=== PATIENT | male | born 1980 | race African-American/Black ===

== ENCOUNTER → 2020-01-03 09:09 | Outpatient (CLI) | payer OTHER, SELFPAY ==
--- NOTE | ~2020-01-03 | XR_ITS ---
XR shoulder LT min 2V 01/03/2020 09:56 INDICATION: Left shoulder pain PROCEDURE: 4 views left shoulder COMPARISON: No prior studies for comparison. FINDINGS: Fracture, dislocation or subluxation is not identified. The soft tissues appear within norm al limits. No foreign bodies are identified. IMPRESSION: 1: NO ACUTE BONE OR JOINT ABNORMALITY IDENTIFIED. Reviewed, dictated and finalized at location A.
--- NOTE | ~2020-01-03 | XR_ITS ---
XR chest 2V 01/03/2020 09:56 Indication: Chest and shoulder pain. Tobacco use. Procedure: 2 view chest Comparison: No prior studies for comparison. Findings: There is left basilar atelectasis. Heart size normal. No focal pneumonia, pulmonary edema, pleural effusion or pneumothorax. Impression: 1: Subsegmental left basilar atelectasis. Reviewed, dictated and finalized at location A. Impression: 1: Subsegmental left basilar atelectasis.
--- NOTE | ~2020-01-03 | XR_ITS ---
XR cervical spine 4-5V INDICATION: Neck pain TECHNIQUE: For views of the cervical spine. FINDINGS: No prior studies for comparison. The cervical spine is visualized to the cervicothoracic junction. There is no prevertebral soft tiss ue swelling, listhesis, or loss of vertebral body height. Intervertebral disc spaces are normal. Th e osseous central canal is patent. No displaced cervical spine fractures are identified. IMPRESSION: 1. No significant osseous abnormality of the cervical spine. Reviewed, dictated and finalized at location A.
== END ==
PROVIDERS: PCP Emergency Medicine; Visit Provider Emergency Medicine
DX: M54.2 Cervicalgia (principal); Z72.0 Tobacco use; M25.512 Pain in left shoulder; J98.11 Atelectasis
CPT/HCPCS: 71046; 72050; 73030

== ENCOUNTER 2020-02-25 14:22 | Emergency (ER) | payer OTHER, SELFPAY ==
[2020-02-25] VITALS (16 sets, daily range): BP systolic 113–167; BP diastolic 75–111; PULSE 51–78; RESP 18–20; TEMP 37.1; O2SAT 92–100
--- NOTE | ~2020-02-25 | XR_ITS ---
EXAMINATION: XR chest 2V DATE: 02/25/2020 15:44 INDICATION: Asthma presenting with hypertension and 2 days of stabbing upper chest pain TECHNIQUE: PA and lateral views of the chest were obtained. COMPARISON: Chest radiograph dated 01/03/2020 FINDINGS: The lungs are clear with no focal airspace opacities, pulmonary edema, pleural effusion or pneumothor ax. The cardiomediastinal silhouette is normal. Unchanged minimal anterior wedging of a midthoracic v ertebral body, likely T7. IMPRESSION: 1. No acute cardiopulmonary disease. Reviewed, dictated and finalized at location H. [employer] MA[employer]GER
--- NOTE | 2020-02-25 14:33 | ECG_ITS ---
Measurements Intervals [place] Rate: 65 P: 61 MS: 145 QRS: 11 QRSD: 103 T: -18 QT: 392 QTc: 410 Interpretive Statements SINUS RHYTHM BORDERLINE ST-T WAVE ABNORMALITY- INF/LAT LEADS BORDERLINE ECG Electronically Signed On 02-25-2020 14:59:52 [employer] by Toby Archer D.O.
[2020-02-25 14:54] LABS: Basophils Percent Auto 0.6 % (0.2-1.2); Eosinophils Absolute Auto 0.2 K/mm3 (0-0.3); Eosinophils Percent Auto 2.1 % (0-4.4); Hematocrit 47.4 % (42.0-52.0); Hemoglobin 16.1 g/dL (14.0-18.0); Immature Granulocyte Absolute 0.04 K/mm3 (0.00-0.031); Immature Granulocyte Percent A 0.6 % (0-0.5); Lymphocytes Percent Auto 30.7 % (18.3-44.2); Mean Corpuscular Hemoglobin 32.3 pg (26-34); Mean Platelet Volume 9.5 fl (7.4-10.4); Monocytes Absolute Auto 0.6 K/mm3 (0.1-0.6); Monocytes Percent Auto 8.1 % (2.6-8.5); Neutrophils Absolute Auto 4.2 K/mm3 (1.3-6.7); Neutrophils Percent Auto 57.9 % (45.5-73.1); Platelet Count Result 222 k/mm3 (150-375); Red Blood Count 4.99 M/mm3 (4.6-6.20); Red Cell Distribution Width 12.8 % (11.5-14.5); White Blood Count 7.2 K/mm3 (4.5-10.0)
[2020-02-25 15:01] LABS: INR 0.9; Partial Thromboplastin Time 32.2 SECONDS (22.3-36.8); Prothrombin Time 12.6 Seconds (11.1-14.7)
[2020-02-25 15:05] LABS: Anion Gap 6 mmol/L (8-16); Blood Urea Nitrogen 13 mg/dL (9-20); Calcium 9.4 mg/dL (8.4-10.2); Carbon Dioxide 30 mmol/L (22-30); Chloride 106 mmol/L (98-107); Estimated CRCL calculation 138 ml/min; Estimated Glomerular Filt Rate > 60; Glucose 115 mg/dL (75-110); Potassium 3.7 mmol/L (3.4-5.0); Sodium 142 mmol/L (137-145)
[2020-02-25 15:16] LABS: Troponin I < 0.012 ng/mL (0.000-0.034)
--- NOTE | 2020-02-25 15:18 | ED.GENADULT ---
HPI - General Adult General Chief complaint: Chest Pain <Joy Rodriguez MD - Last Filed: 02/26/20 07:26> Stated complaint: abnormal ekg <Joy Rodriguez MD - Last Filed: 02/26/20 07:26> Time Seen by Provider: 02/25/20 15:15 <Joy Rodriguez MD - Last Filed: 02/26/20 07:26> Source: patient <Joy Rodriguez MD - Last Filed: 02/26/20 07:26> History of Present Illness HPI narrative: Patient is a 39 y/o male complaining of left sided chest pain for last 2 days. He describes his pain as sharp and rates it as 8/10. There is no pain radiation. He states that movement aggravates his pain. He has some SOB. He denies any cough or fever. He states that he was seen in Dr. Perry's office earlier and was sent here for evaluation. <Joy Rodriguez MD - Last Filed: 02/26/20 07:26> Related Data Home medications: Home Medications Medication Instructions Recorded Confirmed No Home Medications 02/25/20 02/25/20 <Joy Rodriguez MD - Last Filed: 02/26/20 07:26> Allergies/adverse reactions: Allergies Allergy/AdvReac Type Severity Reaction Status Date / Time Penicillins AdvReac Unknown Rash Verified 02/25/20 15:25 <Joy Rodriguez MD - Last Filed: 02/26/20 07:26> Review of Systems Constitutional: Constitutional: Denies chills, Denies fever(s), Denies headache(s) and Denies weakness <Joy Rodriguez MD - Last Filed: 02/26/20 07:26> Eyes: Eyes: Denies blurry vision <Joy Rodriguez MD - Last Filed: 02/26/20 07:26> ENT: Denies headache(s) and Denies neck pain <Joy Rodriguez MD - Last Filed: 02/26/20 07:26> Cardiovascular: Cardiovascular: Reports chest pain and Reports dyspnea <Joy Rodriguez MD - Last Filed: 02/26/20 07:26> Respiratory: Respiratory: Denies cough and Reports dyspnea <Joy Rodriguez MD - Last Filed: 02/26/20 07:26> Gastrointestinal: Gastrointestinal: Denies abdominal pain, Denies diarrhea, Denies nausea and Denies vomiting <Joy Rodriguez MD - Last Filed: 02/26/20 07:26> Genitourinary: Genitourinary: Denies hematuria and Denies dysuria <Joy Rodriguez MD - Last Filed: 02/26/20 07:26> Musculoskeletal: Musculoskeletal: Denies back pain and Denies neck pain <Joy Rodriguez MD - Last Filed: 02/26/20 07:26> Neurologic: Denies headache(s) and Denies weakness <Joy Rodriguez MD - Last Filed: 02/26/20 07:26> Exam Const: General: no acute distress and well developed <Joy Rodriguez MD - Last Filed: 02/26/20 07:26> Orientation/consciousness: oriented to person, oriented to place, oriented to time and patient oriented x3 <Joy Rodriguez MD - Last Filed: 02/26/20 07:26> HENMT: Head: normocephalic <Joy Rodriguez MD - Last Filed: 02/26/20 07:26> Ears: external ears normal <Joy Rodriguez MD - Last Filed: 02/26/20 07:26> General nose exam: Normal external nose present <Joy Rodriguez MD - Last Filed: 02/26/20 07:26> Eyes: General: appearance normal, both eyes and all related structures <Joy Rodriguez MD - Last Filed: 02/26/20 07:26> Conjunctivae: conjunctivae normal <Joy Rodriguez MD - Last Filed: 02/26/20 07:26> Neck: Neck: normal visual inspection and full ROM <Joy Rodriguez MD - Last Filed: 02/26/20 07:26> Chest: Chest palpation & inspection: normal inspection of the chest and no tenderness <Joy Rodriguez MD - Last Filed: 02/26/20 07:26> Resp: Effort & Inspection: normal respiratory effort <Joy Rodriguez MD - Last Filed: 02/26/20 07:26> Auscultation: clear to auscultation bilaterally <Joy Rodriguez MD - Last Filed: 02/26/20 07:26> Cardio: Rate: regular rate <Joy Rodriguez MD - Last Filed: 02/26/20 07:26> Rhythm: regular rhythm <Joy Rodriguez MD - Last Filed: 02/26/20 07:26> GI: GI Palp: No abdominal tenderness and Yes Soft to palpation <Joy Rodriguez MD - Last Filed: 02/26/20 07:26> Skin: General skin exam: normal color and turgor normal <Joy Rodriguez MD - Last Filed: 02/26/20 07:26> Neuro: General: oriented to person, oriented to place, or
[2020-02-25] MEDS: ASPIRIN 81 MG CHEWABLE TABLET 324 MG PO (15:34)
--- NOTE | 2020-02-25 16:23 | PC.NURSE ---
Dinner tray given po.
--- NOTE | 2020-02-25 17:52 | PC.NURSE ---
3hr troponin being drawn. Pt denies chest pain at present. Made aware of pending results.
[2020-02-25 17:57] LABS: D Dimer 0.27 ug/mL (<0.48)
[2020-02-25 18:14] LABS: Troponin I < 0.012 ng/mL (0.000-0.034)
--- NOTE | 2020-02-25 19:08 | PC.NURSE ---
Report to BELINDA Corona, to continue care.
== END 2020-02-25 20:09 | disposition home or self-care (01) ==
PROVIDERS: Emergency Medicine; Emergency Provider Emergency Medicine; PCP Emergency Medicine
DX: R07.89 Other chest pain (principal); R94.31 Abnormal electrocardiogram [ECG] [EKG]
CPT/HCPCS: 36415; 71046; 80048; 84484; 85025; 85380; 85610; 85730; 93005; 99284; A9270

== ENCOUNTER → 2020-06-11 14:15 | Outpatient (CLI) | payer OTHER, SELFPAY ==
--- NOTE | ~2020-06-11 | XR_ITS ---
EXAMINATION: XR foot RT min 3V DATE: 06/11/2020 14:36 INDICATION: Injury to the right great toe TECHNIQUE: Dorsoplantar, two oblique and lateral views of the right foot were obtained. COMPARISON: None. FINDINGS: Hallux valgus with bunion. No fracture. Mild osteoarthritis at the first metatarsophalangeal joint an d a few tarsal metatarsal and interphalangeal joints. Heterotopic ossification near the tip of the la teral malleolus likely sequela of chronic lateral ankle sprain. Small plantar calcaneal spur. IMPRESSION: 1. Heterotopic ossification related to the lateral malleolus likely sequela of chronic ankle sprain. No acute osseous abnormality. 2. Hallux valgus with bunion. 3. 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 Reviewed, dictated and finalized at location B. N [employer]ER IMPRESSION: 1. Heterotopic ossification related to the lateral malleolus likely sequela of chronic ankle sprain. No acute osseous abnormality. 2. Hallux valgus with bunion. 3. Mild degenerative skeletal changes including mild articular osteoarthritis i n the mid and forefoot and small plantar calcaneal spur.
== END ==
PROVIDERS: PCP Emergency Medicine; Visit Provider Emergency Medicine
DX: S99.912A Unspecified injury of left ankle, initial encounter (principal); M20.11 Hallux valgus (acquired), right foot; M21.611 Bunion of right foot
CPT/HCPCS: 73630

== ENCOUNTER 2020-09-26 13:42 | Emergency (ER) | payer OTHER, SELFPAY ==
[2020-09-26 14:13] VITALS: BP 140/90; PULSE 57; RESP 20; TEMP 37.6; O2SAT 100
--- NOTE | 2020-09-26 16:53 | PC.NURSE ---
Name called multiple times in triage, no response.
== END 2020-09-26 16:53 | disposition left against medical advice (07) ==
PROVIDERS: PCP Emergency Medicine
DX: Z53.21 Procedure and treatment not carried out due to patient leaving prior to being seen by health care provider (principal)
CPT/HCPCS: 99199

== ENCOUNTER 2020-12-18 10:23 | Outpatient (CLI) | payer OTHER, SELFPAY ==
--- NOTE | 2020-12-20 23:20 | WPDPFTINT ---
PFT Procedure Performed PFT Procedure Performed Plethysmography (Lung Vol) Diffusing Cap (DLCO) PFT Interpretation DATE OF SERVICE: 12/18/2020 REQUESTING: Ry Perry MD REASON FOR TESTING: Asthma PULMONARY FUNCTION TESTS Results are reliable and reproducible. SPIROMETRY: The FEV1 is 77% predicted, 3.48 L. FVC is 85% predicted. The FEV1/FVC ratio is 73%, normal. No bronchodilator was given. LUNG VOLUMES: Total lung capacity is 86%, normal. Residual volume is 74%, normal. The RV/TLC is 24%, no air trapping. Airway resistance is increased 1389% predicted. DIFFUSING CAPACITY: DLCO is 70% predicted, mildly decreased. This normalizes when corrected for alveolar volume, 100% predicted. FLOW VOLUME LOOP: There is 1 normal flow volume loop. This was not reproducible. IMPRESSION: This pulmonary function test shows normal spirometry, lung volumes with mild decrease in diffusing capacity. This is a nonspecific finding. The patient reports a history of smoking which could explain the mild decrease in DLCO. Increased airway resistance. No bronchodilator was given.
== END 2020-12-18 10:24 | disposition home or self-care (01) ==
LOC: ANHPFT 10:26
PROVIDERS: PCP Emergency Medicine; Visit Provider Emergency Medicine
DX: J45.909 Unspecified asthma, uncomplicated (principal)
CPT/HCPCS: 94375; 94726; 94729

== ENCOUNTER 2021-10-26 22:35 | Emergency (ER) | payer OTHER, SELFPAY ==
--- NOTE | ~2021-10-26 | XR_ITS ---
EXAMINATION: XR chest 2V DATE: 10/26/2021 23:11 INDICATION: Chest pain with onset 4 days prior TECHNIQUE: PA and lateral views of the chest were obtained. COMPARISON: Chest radiograph dated 02/25/2020 FINDINGS: The lungs remain clear with no focal airspace opacities, pulmonary edema, pleural effusion or pneumot horax. The cardiomediastinal silhouette is normal. Visualized bones and soft tissues are unremarkable . IMPRESSION: 1. No acute cardiopulmonary disease. Reviewed, dictated and finalized at location A.
--- NOTE | 2021-10-26 22:38 | ECG_ITS ---
Measurements Intervals [place] Rate: 56 P: 52 DC: 154 QRS: 12 QRSD: 102 T: -16 QT: 400 QTc: 389 Interpretive Statements SINUS BRADYCARDIA INCOMPLETE RIGHT BUNDLE BRANCH BLOCK ST-T WAVE ABNORMALITY IN INFERIOR LEADS- CONSIDER ISCHEMIA ABNORMAL ECG Electronically Signed On 10-27-2021 7:51:28 CDT by Toby Archer D.O.
[2021-10-26 22:50] VITALS: BP 144/84; PULSE 65; RESP 15; TEMP 36.7; O2SAT 100
[2021-10-26 22:59] LABS: Basophils Absolute Auto 0.1 K/mm3 (0.0-0.1); Basophils Percent Auto 0.7 % (0.2-1.2); Eosinophils Absolute Auto 0.2 K/mm3 (0-0.3); Eosinophils Percent Auto 2.8 % (0-4.4); Hematocrit 44.5 % (42.0-52.0); Hemoglobin 14.8 g/dL (14.0-18.0); Immature Granulocyte Absolute 0.02 K/mm3 (0.00-0.031); Immature Granulocyte Percent A 0.2 % (0-0.5); Lymphocytes Percent Auto 38.4 % (18.3-44.2); Mean Corpuscular HGB Conc 33.3 g/dl (32-36); Mean Corpuscular Hemoglobin 31.8 pg (26-34); Mean Corpuscular Volume 95.5 fl (80-100); Mean Platelet Volume 9.9 fl (7.4-10.4); Monocytes Absolute Auto 0.7 K/mm3 (0.1-0.6); Monocytes Percent Auto 8.9 % (2.6-8.5); Neutrophils Absolute Auto 4.1 K/mm3 (1.3-6.7); Platelet Count Result 213 k/mm3 (150-375); Red Blood Count 4.66 M/mm3 (4.6-6.20); Red Cell Distribution Width 13.1 % (11.5-14.5); White Blood Count 8.3 K/mm3 (4.5-10.0)
[2021-10-26 23:11] LABS: Prothrombin Time 12.9 Seconds (11.1-14.7)
[2021-10-26 23:12] LABS: Partial Thromboplastin Time 32.9 SECONDS (22.3-36.8); Potassium 3.7 mmol/L (3.4-5.0)
[2021-10-26 23:15] LABS: Alanine Aminotransferase 24 U/L (6-50); Albumin Level 4.1 g/dL (3.5-5.1); Alkaline Phosphatase 82 U/L (38-126); Anion Gap 5 mmol/L (8-16); Aspartate Amino Transferase 25 U/L (17-59); Bilirubin,Total 0.3 mg/dL (0.2-1.3); Blood Urea Nitrogen 13 mg/dL (9-20); Calcium 8.6 mg/dL (8.4-10.2); Carbon Dioxide 27 mmol/L (22-30); Chloride 107 mmol/L (98-107); Estimated CRCL calculation 139 ml/min; Estimated Glomerular Filt Rate > 60; Glucose 105 mg/dL (65-110); Lipase 58 U/L (23-300); Sodium 139 mmol/L (137-145)
[2021-10-26 23:24] LABS: Troponin I < 0.012 ng/mL (0.000-0.034)
--- NOTE | 2021-10-26 23:28 | ED.GENADULT ---
HPI - General Adult General Chief complaint: Chest Pain Stated complaint: chest pains Time Seen by Provider: 10/26/21 23:21 History of Present Illness HPI narrative: Patient is a 41-year-old gentleman who presents the emergency department with chief complaint of chest pain. Patient states for the last 2 days he has been having pain on the right side of his chest patient states is worse with inspiration and worse with movement. Patient reports that he had been seen recently for similar symptoms and and actually had a cardiac cath and did not require any stent placement and was not placed on any medication was told he had clean coronaries. This was done at [place]. The patient states that he has had no trauma reports no shortness of breath Related Data Allergies Allergy/AdvReac Type Severity Reaction Status Date / Time Penicillins AdvReac Unknown Rash Verified 10/26/21 22:38 Review of Systems Review of Systems: A 10 system review of systems was completed on the patient and is negative except for what is stated in the HPI. Nursing and ancillary documentation was reviewed. [facility] Social History Social History Gender identity (if verbalized by the patient): Male Exam Narrative: GENERAL: Well-appearing, well-nourished, and in no acute distress. HEAD: Normocephalic, atraumatic. EYES: PERRLA and EOMI. ENT: Nares clear, no rhinorrhea or epistaxis. Mucous membranes moist. NECK: Supple. CHEST: Clear to auscultation. No respiratory distress. Chest wall is tender to palpation on the right sternal border HEART: Regular rate and rhythm. No murmur heard. Normal peripheral pulses. ABDOMEN: Soft, nontender, nondistended, normal active bowel sounds. EXTREMITIES: Normal range of motion. No edema. SKIN: Warm, dry, no rash. NEURO: No focal deficits. Alert and oriented x3. PSYCH: Normal mood and affect. Course Course Emergency Course: EKG is sinus bradycardia rate of [address] elevation or ST depression when compared to previous EKGs there is no significant change Vital Signs Vital signs: Vital Signs Temperature 36.7 C 10/26/21 22:50 Pulse Rate 65 10/26/21 22:50 Respiratory Rate 15 10/26/21 22:50 Blood Pressure 144/84 H 10/26/21 22:50 Pulse Oximetry 100 07/18/22 22:50 Oxygen Delivery Room Air 10/26/21 22:50 Temperature 36.7 C 10/26/21 22:50 Pulse Rate 65 10/26/21 22:50 Respiratory Rate 15 10/26/21 22:50 Blood Pressure 144/84 H 10/26/21 22:50 Pulse Oximetry 100 10/26/21 22:50 Oxygen Delivery Room Air 10/26/21 22:50 Medical Decision Making Vital Signs Vital Signs: Vital Signs Temperature 36.7 C 10/26/21 22:50 Pulse Rate 65 10/26/21 22:50 Respiratory Rate 15 10/26/21 22:50 Blood Pressure 144/84 H 10/26/21 22:50 Pulse Oximetry 100 10/26/21 22:50 Oxygen Delivery Room Air 10/26/21 22:50 Temperature 36.7 C 10/26/21 22:50 Pulse Rate 65 10/26/21 22:50 Respiratory Rate 15 10/26/21 22:50 Blood Pressure 144/84 H 10/26/21 22:50 Pulse Oximetry 10/26/21 22:50 Oxygen Delivery Room Air 10/26/21 22:50 Lab Data Result diagrams: 10/26/21 22:52 10/26/21 22:52 Labs: Lab Results 10/26/21 10/26/21 10/26/21 Range/Units 22:52 22:52 22:52 WBC 8.3 (4.5-10.0) K/mm3 RBC 4.66 (4.6-6.20) M/mm3 Hgb 14.8 (14.0-18.0) g/dL Hct 44.5 (42.0-52.0) % MCV 95.5 (80-100) fl MCH 31.8 (26-34) pg MCHC 33.3 (32-36) g/dl RDW 13.1 (11.5-14.5) % Plt Count 213 (150-375) k/mm3 MPV 9.9 (7.4-10.4) fl Immature Gran % (Auto) 0.2 (0-0.5) % Neut % (Auto) 49.0 (45.5-73.1) % Lymph % (Auto) 38.4 (18.3-44.2) % [place] % (Auto) 8.9 H (2.6-8.5) % Eos % (Auto) 2.8 (0-4.4) % Baso % (Auto) 0.7 (0.2-1.2) % Lymph # (Auto) 3.20 (0.9-3.2) K/mm3 [place] # (Auto) 0.7 H (0.1-0.6) K/mm3 Eos # (Auto) 0.2 (0-
[2021-10-26] MEDS: ASPIRIN 81 MG CHEWABLE TABLET 324 MG PO (23:33)
[2021-10-26] MEDS: KETOROLAC 30 MG/ML VIAL (*BKC) 15 MG IM (23:54)
--- NOTE | 2021-10-26 23:55 | PC.NURSE ---
verbal read back order just give same amount of Toradol IM
[2021-10-27 01:09] VITALS: BP 142/86; PULSE 82; RESP 18; O2SAT 98
== END 2021-10-27 01:12 | disposition home or self-care (01) ==
PROVIDERS: Emergency Provider Emergency Medicine; PCP Emergency Medicine
DX: R07.89 Other chest pain (principal)
CPT/HCPCS: 36415; 71046; 80053; 83690; 84484; 85025; 85610; 85730; 93005; 96372; 99284; A9270; J1885

== ENCOUNTER 2022-03-31 13:03 | Outpatient (CLI) | payer OTHER, SELFPAY ==
--- NOTE | ~2022-03-31 | US_ITS ---
EXAMINATION:US venous doppler LE LT INDICATION:Acute DVT of the left peroneal vein. TECHNIQUE: Multiple grayscale, color flow and Doppler images of the left lower extremity deep venous systems were obtained and reviewed. COMPARISON:No prior studies for comparison. FINDINGS: The common femoral, superficial femoral and popliteal veins demonstrate normal respiratory variation, augmentation and compressibility. Color flow is also seen within the posterior tibial, pe roneal, greater saphenous and profunda veins. IMPRESSION: 1: No lower extremity deep venous thrombosis. Reviewed, dictated and finalized at location A. 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
== END 2022-03-31 13:04 | disposition home or self-care (01) ==
PROVIDERS: PCP Emergency Medicine; Visit Provider Internal Medicine Hematology & Oncology
DX: I82.452 Acute embolism and thrombosis of left peroneal vein (principal)
CPT/HCPCS: 93971

== ENCOUNTER 2022-05-17 10:29 | Outpatient (CLI) | payer OTHER, SELFPAY ==
[2022-05-19 21:33] LABS: Antithrombin III Activity 101 % normal (80-135)
[2022-05-20 03:40] LABS: Homocysteine 20.3 umol/L (<11.4)
[2022-05-22 12:46] LABS: Lupus dRVVT Screen 40 sec (<=45); PTT-LA Screen 39 sec (<=40)
[2022-05-24 16:16] LABS: Factor V (Leiden) Mutation NEGATIVE
== END 2022-05-17 10:30 | disposition home or self-care (01) ==
PROVIDERS: PCP Emergency Medicine; Visit Provider Internal Medicine Hematology & Oncology
DX: I82.452 Acute embolism and thrombosis of left peroneal vein (principal)
CPT/HCPCS: 36415; 81240; 81241; 83090; 85300; 85303; 85306; 85613; 85730; 86146

== ENCOUNTER 2023-01-17 16:11 | Emergency (ER) | payer OTHER, SELFPAY ==
[2023-01-17 16:13] VITALS: BP 150/78; PULSE 71; RESP 17; TEMP 36.4; O2SAT 100
[2023-01-17 16:54] LABS: Appearance Urine Clear (Clear); Bilirubin Urine Negative (Negative); Blood Urine Negative (Negative); Color Urine Yellow (Yellow); Glucose Urine UA Negative (Negative); Ketones Urine Negative (Negative); Leukocyte Esterase Ur Negative LEU/UL (Negative); Nitrate Urine Negative (Negative); Protein Urine Negative (Negative); Specific Grav Ur 1.025 (1.001-1.035); Urobilinogen Urine 0.2 mg/dL (<2.0)
[2023-01-17 16:55] LABS: Add Urine Microscopic? NO
--- NOTE | 2023-01-17 17:16 | ED.MALEGU ---
HPI - Male Genitourinary General Chief complaint: Urogenital-Male Stated complaint: hematuria Time Seen by Provider: 01/17/23 16:33 History of Present Illness HPI Narrative: Patient is a 42-year-old male who presents ER with concerns for hematuria. Reports he urinated last night at the end of his stream there is a drop of blood. Similar thing happened this morning. Patient just started going back to work after being on disability for DVT. He is on Eliquis. No recent trauma. No urinary frequency urgency or dysuria. Denies flank pain. Related Data Home Medications Medication Instructions Recorded Confirmed amlodipine 5 mg tablet mg 01/17/23 apixaban 5 mg tablet (Eliquis) mg 01/17/23 clindamycin HCl 300 mg capsule mg 01/17/23 diclofenac sodium 75 mg mg PO 01/17/23 tablet,delayed release hydrochlorothiazide 12.5 mg tablet mg 01/17/23 lisinopril 10 mg tablet mg 01/17/23 01/17/23 Allergies Allergy/AdvReac Type Severity Reaction Status Date / Time Penicillins AdvReac Unknown Rash Verified 10/26/21 22:38 Review of Systems Constitutional: Constitutional: Denies chills, Denies fatigue and Denies fever(s) Genitourinary: Genitourinary: Reports hematuria, Denies oliguria, Denies dysuria, Denies penile discharge, Denies testicular pain and Denies urinary frequency PMFSH Past Medical History Medical History (Updated 01/17/23 @ 17:22 by Rodrigue Mahmood MD) DVT (deep venous thrombosis) Hypertension Surgical History Surgical History (Updated 01/17/23 @ 17:21 by Rodrigue Mahmood MD) No pertinent past surgical history Social History Social History Gender identity (if verbalized by the patient): Male Exam Narrative: GENERAL: Well-appearing, well-nourished, and in no acute distress. HEAD: Normocephalic, atraumatic. ENT: Mucous membranes moist. CHEST: Clear to auscultation. No respiratory distress. HEART: Regular rate and rhythm. Normal peripheral pulses. ABDOMEN: Soft, nontender, nondistended. No CVA tenderness EXTREMITIES: Normal range of motion. No edema. NEURO: Alert and oriented x3. PSYCH: Normal mood and affect. Course Course Emergency Course: Patient resting comfortably. Informed of results. Patient felt to be appropriate for discharge home. Encouraged hydration but also frequent bathroom breaks while at work. Vital Signs Vital signs: Vital Signs Temperature 97.6 F 01/17/23 16:13 Pulse Rate 71 01/17/23 16:13 Respiratory Rate 17 01/17/23 16:13 Blood Pressure 150/78 H 01/17/23 16:13 Pulse Oximetry 100 01/17/23 16:13 Oxygen Delivery Room Air 01/17/23 16:13 Temperature 97.6 F 01/17/23 16:13 Pulse Rate 71 01/17/23 16:13 Respiratory Rate 17 01/17/23 16:13 Blood Pressure 150/78 H 01/17/23 16:13 Pulse Oximetry 100 01/17/23 16:13 Oxygen Delivery Room Air 01/17/23 16:13 MDM - Male Genitourinary Lab Data Labs: Lab Results 01/17/23 Range/Units 16:24 Urine Color Yellow (Yellow) Urine Appearance Clear (Clear) Urine pH 7.0 (5.0-9.0) Ur Specific [place] 1.025 (1.001-1.035) Urine Protein Negative (Negative) mg/dL Urine Glucose (UA) Negative (Negative) mg/dL Urine Ketones Negative (Negative) mg/dL Ur Blood (Man) Negative (Negative) Urine Nitrate Negative (Negative) Urine Bilirubin Negative (Negative) Urine Urobilinogen 0.2 (<2.0) mg/dL Leukocyte Esterase Rfl Negative (Negative) [place]/UL Urine Characteristics Clear Discharge Plan Discharge Clinical Impression: Hematuria Patient Disposition: Home, Self-Care Condition: Stable Instructions: Hematuria (ED) Additional Instructions: There is no evidence of blood in your urine today nor was there evidence of infection. Return to the ER if you are passing large clots, your unable to urinate, you have addit
[2023-01-17 17:32] VITALS: BP 161/102; PULSE 62; RESP 18; O2SAT 98
== END 2023-01-17 17:33 | disposition home or self-care (01) ==
PROVIDERS: Student in an Organized Health Care Education/Training Program; Emergency Provider Emergency Medicine; PCP Emergency Medicine
DX: R31.9 Hematuria, unspecified (principal); I10 Essential (primary) hypertension; Z86.718 Personal history of other venous thrombosis and embolism; Z79.01 Long term (current) use of anticoagulants
CPT/HCPCS: 81003; 99283

== ENCOUNTER → 2023-06-08 09:44 | Outpatient (CLI) | payer OTHER, SELFPAY ==
--- NOTE | ~2023-06-08 | XR_ITS ---
Right Shoulder Technique: AP and scapular Y views were obtained. Clinical History: Pain Findings: No fracture or dislocation is seen. Osseous alignment is anatomic. The glenohumeral and acr omioclavicular joint spaces are preserved. Soft tissues are unremarkable. Impression: Unremarkable right shoulder radiographs. Reviewed, dictated and finalized at [facility]. STAFF NURSE Impression: Unremarkable right shoulder radiographs.
== END ==
PROVIDERS: PCP Emergency Medicine; Visit Provider Emergency Medicine
DX: M25.511 Pain in right shoulder (principal)
CPT/HCPCS: 73030

== ENCOUNTER 2023-08-22 12:10 | Emergency (ER) | payer OTHER, SELFPAY ==
[2023-08-22 12:16] VITALS: BP 143/80; PULSE 59; RESP 18; TEMP 36.5; O2SAT 99
[2023-08-22 12:45] VITALS: BP 147/69; PULSE 48; RESP 18; O2SAT 99
[2023-08-22 13:15] VITALS: BP 137/78; PULSE 48; RESP 20; O2SAT 100
[2023-08-22 13:24] LABS: Basophils Percent Auto 0.7 % (0.2-1.2); Eosinophils Absolute Auto 0.2 K/mm3 (0-0.3); Eosinophils Percent Auto 3.2 % (0-4.4); Hematocrit 46.9 % (42.0-52.0); Hemoglobin 15.1 g/dL (14.0-18.0); Immature Granulocyte Absolute 0.01 K/mm3 (0.00-0.031); Immature Granulocyte Percent A 0.2 % (0-0.5); Lymphocytes Absolute Auto 2.43 K/mm3 (0.9-3.2); Lymphocytes Percent Auto 43.2 % (18.3-44.2); Mean Corpuscular HGB Conc 32.2 g/dl (32-36); Mean Corpuscular Hemoglobin 30.6 pg (26-34); Mean Corpuscular Volume 95.1 fl (80-100); Mean Platelet Volume 10.3 fl (7.4-10.4); Monocytes Absolute Auto 0.4 K/mm3 (0.1-0.6); Monocytes Percent Auto 7.1 % (2.6-8.5); Neutrophils Absolute Auto 2.6 K/mm3 (1.3-6.7); Neutrophils Percent Auto 45.6 % (45.5-73.1); Platelet Count Result 221 k/mm3 (150-375); Red Blood Count 4.93 M/mm3 (4.6-6.20); Red Cell Distribution Width 13.1 % (11.5-14.5); White Blood Count 5.6 K/mm3 (4.5-10.0)
[2023-08-22 13:36] LABS: INR 0.9; Prothrombin Time 12.9 Seconds (11.1-14.7)
[2023-08-22 13:37] LABS: Partial Thromboplastin Time 33.3 Seconds (22.3-36.8)
[2023-08-22 13:50] LABS: Alanine Aminotransferase 19 U/L (6-50); Albumin Level 4.4 g/dL (3.5-5.1); Alkaline Phosphatase 75 U/L (38-126); Anion Gap 7 mmol/L (4-12); Aspartate Amino Transferase 27 U/L (17-59); Bilirubin,Total 0.8 mg/dL (0.2-1.3); Blood Urea Nitrogen 12 mg/dL (9-20); Calcium 9.5 mg/dL (8.4-10.2); Carbon Dioxide 26 mmol/L (22-30); Chloride 107 mmol/L (98-107); Estimated CRCL calculation 148 ml/min; Estimated Glomerular Filt Rate > 60; Glucose 109 mg/dL (65-110); Lipase 49 U/L (23-300); Potassium 3.9 mmol/L (3.4-5.0); Sodium 140 mmol/L (137-145)
--- NOTE | 2023-08-22 13:53 | ED.GIBLEED ---
HPI - GI Bleed General Chief complaint: GI Bleed Stated complaint: blood in stool Time Seen by Provider: 08/22/23 12:51 History of Present Illness HPI Narrative: patient is a 43-year-old male who presents ER with blood in stool. He has had 4 episodes of bloody stools in last 24 hours. His last stool was 3 hours ago prior to arrival. No fevers or chills or sweats. No diarrhea. No current constipation. He has no history of hemorrhoids. No tenderness around rectum. He is no longer on any blood thinning medication. He was taken off his anticoagulant for DVT months ago. No urinary frequency urgency or dysuria. No abdominal pain. No history of Colonoscopy. No known diverticulosis. Patient has shown me photos on his cell phone of the bloody stools. Related Data Home Medications Medication Instructions Recorded Confirmed No Home Medications 08/22/23 08/22/23 Allergies Allergy/AdvReac Type Severity Reaction Status Date / Time Penicillins AdvReac Unknown Rash Verified 08/22/23 12:45 Review of Systems Review of Systems: All systems reviewed & are unremarkable except as noted in HPI and below Constitutional: Constitutional: Reports no additional constitutional complaints ENT: Reports system reviewed and no additional complaints, except as documented Cardiovascular: Cardiovascular: Reports no additional cardiovascular complaints Respiratory: Respiratory: Reports no additional respiratory complaints Gastrointestinal: Gastrointestinal: Denies abdominal pain, Denies constipation, Denies diarrhea, Denies nausea and Denies vomiting Comments: Blood in stool. Genitourinary: Genitourinary: Reports no additional male genitourinary complaints PMFSH Past Medical History Medical History (Updated 08/22/23 @ 13:58 by Rodrigue Mahmood MD) DVT (deep venous thrombosis) Hypertension Surgical History Surgical History (Updated 01/17/23 @ 17:21 by Rodrigue Mahmood MD) No pertinent past surgical history Social History Social History Gender identity (if verbalized by the patient): Male Exam Narrative: GENERAL: Well-appearing, well-nourished, and in no acute distress. HEAD: Normocephalic, atraumatic. EYES: PERRL and EOMI. ENT: Mucous membranes moist. NECK: Supple. CHEST: Clear to auscultation. No respiratory distress. HEART: Regular rate and rhythm. Normal peripheral pulses. ABDOMEN: Soft, nontender, nondistended. Rectal exam without hemorrhoids or fissures. Digital exam deferred as patient is already demonstrate he has blood in his stool. EXTREMITIES: Normal range of motion. No edema. SKIN: Warm, dry, no rash. NEURO: Alert and oriented x3. PSYCH: Normal mood and affect. Course Course Emergency Course: Discussed with Dr. Toro. F/u outpt, possible colonoscopy. Pt informed of dx and tx plan. Comfortable with d/c home. Vital Signs Vital signs: Vital Signs Temperature 97.7 F 08/22/23 12:16 Pulse Rate 59 L 08/22/23 12:16 Respiratory Rate 18 08/22/23 12:16 Blood Pressure 143/80 H 08/22/23 12:16 Pulse Oximetry 99 08/22/23 12:16 Temperature 97.7 F 08/22/23 12:16 Pulse Rate 59 L 08/22/23 12:16 Respiratory Rate 18 08/22/23 12:16 Blood Pressure 143/80 H 08/22/23 12:16 Pulse Oximetry 99 08/22/23 12:16 MDM - GI Bleed Lab Data 08/22/23 13:12 08/22/23 13:11 Labs: Lab Results 08/22/23 08/22/23 Range/Units 13:11 13:12 WBC 5.6 (4.5-10.0) K/mm3 RBC 4.93 (4.6-6.20) M/mm3 Hgb 15.1 (14.0-18.0) g/dL Hct 46.9 (42.0-52.0) % MCV 95.1 (80-100) fl MCH 30.6 (26-34) pg MCHC 32.2 (32-36) g/dl RDW 13.1 (11.5-14.5) % Plt Count 221 (150-375) k/mm3 MPV 10.3 (7.4-10.4) fl Immature Gran % (Auto) 0.2 (0-0.5) % Neut % (Auto) 45.6 (45.5-73.1) % Lymph % (Auto) 43.2 (18.3-44.2) % [place] % (Auto) 7.1 (2.6-8.5) % E
[2023-08-22 14:00] VITALS: BP 143/99; PULSE 50; RESP 20; O2SAT 100
== END 2023-08-22 14:10 | disposition home or self-care (01) ==
PROVIDERS: Emergency Provider Emergency Medicine; PCP Emergency Medicine
DX: K62.5 Hemorrhage of anus and rectum (principal); I10 Essential (primary) hypertension; Z86.718 Personal history of other venous thrombosis and embolism
CPT/HCPCS: 36415; 80053; 83690; 85025; 85610; 85730; 86850; 86900; 86901; 99283

== ENCOUNTER 2023-10-09 04:29 | Emergency (ER) | payer OTHER, SELFPAY ==
--- NOTE | ~2023-10-09 | CT_ITS ---
EXAMINATION: CT soft tissue neck w con DATE: 10/09/2023 06:39 INDICATION: Neck pain and swelling TECHNIQUE: Computed tomography (CT) of the neck was performed with 75 mL Omnipaque-350 intravenous co ntrast. Automated exposure control and iterative reconstruction technique were employed. The dose-milagro gth product was 550.89 mGy-cm. COMPARISON: None FINDINGS: There is skin thickening with prominent bilateral submandibular soft tissue swelling and fat strandin g consistent with cellulitis. This extends with lesser severity internally along the midline of the n ben to the level of the manubrium. There are a few mildly enlarged likely reactive submandibular lymp h nodes, the largest on the left measuring 2.0 x 1.4 x 1.2 cm with prominent central decreased densit y suggesting a suppurative lymph node. No abscess or soft tissue gas. There is also asymmetric swelli ng of the adjacent anterior belly of the left digastric muscle. There is additional mildly prominent but still normal-sized likely reactive lymphadenopathy along the bilateral jugular chains in the bila teral posterior cervical triangles. The bilateral submandibular glands along with the bilateral parot id glands and the thyroid appear normal and relatively symmetric. There is extensive bilateral dental disease most prominent posteriorly at the molars this includes a periapical erosions which erodes th rough the peripheral cortices along the right side of the maxilla but without associated periosteal a bscesses. The parapharyngeal soft tissues, epiglottis and aryepiglottic folds are normal. Orbits are normal. Mucous retention cyst in the right maxillary sinus and mild mucosal thickening bilateral ethm oid sinuses. Mastoid air cells and middle ear cavities are clear. Mild cervical spondylosis. Visualiz ed upper lungs are clear. IMPRESSION: 1. Prominent facial cellulitis in the bilateral submandibular regions with prominent asymmetric swell ing of the anterior belly of the left digastric muscle suggesting myositis and with nearly adjacent c entrally low-density 2.0 x 1.4 x 1.2 cm left submandibular likely suppurative lymph node. No other ab scess. 2. Additional more diffuse mild likely reactive bilateral jugular chain and posterior cervical triang le lymphadenopathy. 3. Extensive dental disease which does not appear to directly contribute to the facial cellulitis. Reviewed, dictated and finalized at location A. IMPRESSION: 1. Prominent facial cellulitis in the bilateral submandibular regions with prom inent asymmetric swelling of the anterior belly of the left digastric muscle nazario ggesting myositis and with nearly adjacent centrally low-density 2.0 x 1.4 x 1. 2 cm left submandibular likely suppurative lymph node. No other abscess. 2. Additional more diffuse mild likely reactive bilateral jugular chain and pos terior cervical triangle lymphadenopathy. 3. Extensive dental disease which does not appear to directly contribute to the facial cellulitis.
[2023-10-09 04:33] VITALS: BP 148/86; PULSE 62; RESP 20; TEMP 36.7; O2SAT 98
[2023-10-09 05:10] LABS: Basophils Absolute Auto 0.1 K/mm3 (0.0-0.1); Basophils Percent Auto 0.6 % (0.2-1.2); Eosinophils Absolute Auto 0.2 K/mm3 (0-0.3); Eosinophils Percent Auto 1.6 % (0-4.4); Hematocrit 45.3 % (42.0-52.0); Hemoglobin 15.2 g/dL (14.0-18.0); Immature Granulocyte Absolute 0.04 K/mm3 (0.00-0.031); Immature Granulocyte Percent A 0.3 % (0-0.5); Lymphocytes Absolute Auto 3.42 K/mm3 (0.9-3.2); Lymphocytes Percent Auto 24.3 % (18.3-44.2); Mean Corpuscular HGB Conc 33.6 g/dl (32-36); Mean Corpuscular Hemoglobin 30.8 pg (26-34); Mean Corpuscular Volume 91.9 fl (80-100); Mean Platelet Volume 9.9 fl (7.4-10.4); Monocytes Absolute Auto 1.6 K/mm3 (0.1-0.6); Monocytes Percent Auto 11.2 % (2.6-8.5); Neutrophils Absolute Auto 8.7 K/mm3 (1.3-6.7); Platelet Count Result 219 k/mm3 (150-375); Red Blood Count 4.93 M/mm3 (4.6-6.20); Red Cell Distribution Width 13.3 % (11.5-14.5); White Blood Count 14.1 K/mm3 (4.5-10.0)
[2023-10-09 05:23] LABS: Alanine Aminotransferase 18 U/L (6-50); Albumin Level 4.3 g/dL (3.5-5.1); Alkaline Phosphatase 69 U/L (38-126); Anion Gap 9 mmol/L (4-12); Aspartate Amino Transferase 19 U/L (17-59); Bilirubin,Total 0.9 mg/dL (0.2-1.3); Blood Urea Nitrogen 14 mg/dL (9-20); Calcium 8.8 mg/dL (8.4-10.2); Carbon Dioxide 25 mmol/L (22-30); Chloride 106 mmol/L (98-107); Estimated CRCL calculation 114 ml/min; Estimated Glomerular Filt Rate > 60; Glucose 112 mg/dL (65-110); Potassium 3.8 mmol/L (3.4-5.0); Sodium 140 mmol/L (137-145)
--- NOTE | 2023-10-09 05:44 | ED.GENADULT ---
HPI - General Adult General Chief complaint: Skin/Abscess/Foreign Body <Alejo Rodriguez MD - Last Filed: 10/09/23 05:46> Stated complaint: Swelling to neck, trouble swallowing <Alejo Rodriguez MD - Last Filed: 10/09/23 05:46> Time Seen by Provider: 10/09/23 05:33 <Alejo Rodriguez MD - Last Filed: 10/09/23 05:46> History of Present Illness HPI narrative: patient is a 43-year-old gentleman presents emergency department chief complaint of neck pain and swelling. Patient reports he was seen at [facility] for S some swelling in his neck just below his chin the patient started on Bactrim and a steroid pulse the patient reports that over the last days has noticed that his neck has been progressively more swollen reports that it feels uncomfortable whenever he swallows the patient denies fever patient reports that there was not a specific swelling in his mouth denies trismus denies shortness of breath <Alejo Rodriguez MD - Last Filed: 10/09/23 05:46> patient is a 43-year-old gentleman presents to the emergency department chief complaint of neck pain and swelling. Patient reports he was seen at [facility] for S some swelling in his neck just below his chin the patient started on Bactrim and a steroid pulse the patient reports that over the last days has noticed that his neck has been progressively more swollen reports that it feels uncomfortable whenever he swallows the patient denies fever patient reports that there was not a specific swelling in his mouth denies trismus denies shortness of breath <Jason Zimmerman MD - Last Filed: 10/09/23 16:39> Related Data Allergies/adverse reactions: Allergies Allergy/AdvReac Type Severity Reaction Status Date / Time Penicillins AdvReac Unknown Rash Verified 10/09/23 04:38 <Alejo Rodriguez MD - Last Filed: 10/09/23 05:46> Review of Systems Review of Systems: A 10 system review of systems was completed on the patient and is negative except for what is stated in the HPI. Nursing and ancillary documentation was reviewed. <Alejo Rodriguez MD - Last Filed: 10/09/23 05:46> PMFSH Past Medical History Medical History: Medical History DVT (deep venous thrombosis) Hypertension <Alejo Rodriguez MD - Last Filed: 10/09/23 05:46> Surgical History Surgical History: Surgical History No pertinent past surgical history <Alejo Rodriguez MD - Last Filed: 10/09/23 05:46> Social History Social History: Social History Gender identity (if verbalized by the patient): Male <Alejo Rodriguez MD - Last Filed: 10/09/23 05:46> Exam Narrative: GENERAL: Well-appearing, well-nourished, and in no acute distress. HEAD: Normocephalic, atraumatic. EYES: PERRLA and EOMI. ENT: Nares clear, no rhinorrhea or epistaxis. Mucous membranes moist. there is no crepitance or swelling underneath the tongue, there is no necrotic tissue NECK: Supple.There is swelling in the anterior neck to the base of the mandible CHEST: Clear to auscultation. No respiratory distress. HEART: Regular rate and rhythm. No murmur heard. Normal peripheral pulses. ABDOMEN: Soft, nontender, nondistended, normal active bowel sounds. EXTREMITIES: Normal range of motion. No edema. SKIN: Warm, dry, no rash. NEURO: No focal deficits. Alert and oriented x3. PSYCH: Normal mood and affect. <Alejo Rodriguez MD - Last Filed: 10/09/23 05:46> Course Reevaluation(s) Reevaluation #1: Patient care was signed out to me by the overnight doctor with CT results pending. CT shows facial cellulitis and the bulk of the facial swelling is secondary to lymphadenitis. Patient was treated with IV clindamycin in the emergency
[2023-10-09] MEDS: SODIUM CHLORIDE 0.9% IV 1,000 ML 999 ML IV CONT (05:58)
[2023-10-09] MEDS: methylPREDNISolone SOD SUCC 125 MG VIAL IV PUSH (05:58)
[2023-10-09] MEDS: CLINDAMYCIN 600 MG/D5W 50 ML 600 MG/50 ML PIGGYBACK 100 MG IVPB (05:59)
[2023-10-09 06:08] VITALS: BP 142/120; PULSE 61; RESP 18; O2SAT 97
[2023-10-09 06:18] LABS: Appearance Urine Clear (Clear); Bacteria Urine None Seen /hpf; Bilirubin Urine Negative (Negative); Blood Urine Negative (Negative); Color Urine Yellow (Yellow); Glucose Urine UA Negative (Negative); Ketones Urine Negative (Negative); Leukocyte Esterase Ur 1+ LEU/UL (Negative); Nitrate Urine Negative (Negative); Non Pathogenic Casts 0-2; Protein Urine Trace mg/dL (Negative); RBC Urine 0-2 /hpf (0-2); Specific Grav Ur 1.027 (1.001-1.035); Squamous Epithelial Cell Urine None Seen /hpf (Few); WBC Urine >100 /hpf (0-3)
[2023-10-09 06:26] LABS: Add Urine Microscopic? YES
[2023-10-09 06:27] LABS: Lactic Acid Reflex 0.8 mmol/L (0.7-2.0)
[2023-10-09 06:37] LABS: Procalcitonin 0.1 ng/mL
[2023-10-09 07:18] VITALS: BP 164/101; PULSE 62; RESP 20; O2SAT 100
[2023-10-09 07:55] VITALS: BP 158/93; PULSE 66; RESP 18; O2SAT 97
== END 2023-10-09 07:57 | disposition home or self-care (01) ==
PROVIDERS: Emergency Provider Emergency Medicine; PCP Emergency Medicine
DX: L03.211 Cellulitis of face (principal); I10 Essential (primary) hypertension; Z86.718 Personal history of other venous thrombosis and embolism
CPT/HCPCS: 36415; 70491; 80053; 81001; 83605; 84145; 85025; 87040; 87086; 96365; 96375; 99284; J2919; J7030; Q9967

== ENCOUNTER 2023-10-14 00:17 | Emergency (ER) | payer OTHER, SELFPAY ==
[2023-10-14] VITALS (12 sets, daily range): BP systolic 128–169; BP diastolic 67–94; PULSE 54–63; RESP 14–19; TEMP 36.6–36.7; O2SAT 97–100
--- NOTE | ~2023-10-14 | CT_ITS ---
CT scan of the Neck Technique: 2.5 mm axial scans were obtained through the neck after intravenous administration of 75 c c Omnipaque 350. Coronal and sagittal reconstructions of the neck were obtained. Dose reduction techn ique was used on this scan by utilizing automated exposure control and iterative reconstruction techn ique. The dose-length product (DLP) was 622.60 mGy-cm. Clinical History: Neck swelling COMPARISON: 10/09/2023 Findings: Parapharyngeal spaces appear normal bilaterally. The parotid and submandibular glands appear normal. The pharyngeal mucosal spaces appear normal. No soft tissue masses are seen in the neck. There is ext ensive subcutaneous soft tissue edema in the region of the chin/submental region, with prominent subm ental lymph nodes present. These findings are similar to prior exam. Suspected 2.5 cm fluid collectio n at the left side of the chin (coronal image 40, axial image 70-71 for example). The thyroid gland appears normal. Images of the lung apices reveal no abnormalities. Impression: Probable 2.5 cm left submental abscess with surrounding extensive soft tissue edema/infiltration and mildly enlarged submental reactive lymph nodes. Reviewed, dictated and finalized at location . Impression: Probable 2.5 cm left submental abscess with surrounding extensive soft tissue e vivienne/infiltration and mildly enlarged submental reactive lymph nodes.
[2023-10-14 01:17] LABS: Basophils Absolute Auto 0.1 K/mm3 (0.0-0.1); Basophils Percent Auto 0.6 % (0.2-1.2); Eosinophils Absolute Auto 0.3 K/mm3 (0-0.3); Eosinophils Percent Auto 2.3 % (0-4.4); Hematocrit 46.2 % (42.0-52.0); Hemoglobin 15.6 g/dL (14.0-18.0); Immature Granulocyte Absolute 0.08 K/mm3 (0.00-0.031); Immature Granulocyte Percent A 0.6 % (0-0.5); Lymphocytes Absolute Auto 3.57 K/mm3 (0.9-3.2); Lymphocytes Percent Auto 27.2 % (18.3-44.2); Mean Corpuscular HGB Conc 33.8 g/dl (32-36); Mean Corpuscular Hemoglobin 30.8 pg (26-34); Mean Corpuscular Volume 91.3 fl (80-100); Mean Platelet Volume 9.4 fl (7.4-10.4); Monocytes Absolute Auto 1.1 K/mm3 (0.1-0.6); Monocytes Percent Auto 8.5 % (2.6-8.5); Neutrophils Percent Auto 60.8 % (45.5-73.1); Platelet Count Result 314 k/mm3 (150-375); Red Blood Count 5.06 M/mm3 (4.6-6.20); Red Cell Distribution Width 13.2 % (11.5-14.5); White Blood Count 13.1 K/mm3 (4.5-10.0)
[2023-10-14 01:30] LABS: Alanine Aminotransferase 24 U/L (6-50); Albumin Level 4.4 g/dL (3.5-5.1); Alkaline Phosphatase 76 U/L (38-126); Anion Gap 8 mmol/L (4-12); Aspartate Amino Transferase 28 U/L (17-59); Bilirubin,Total 0.5 mg/dL (0.2-1.3); Blood Urea Nitrogen 13 mg/dL (9-20); Calcium 9.1 mg/dL (8.4-10.2); Carbon Dioxide 30 mmol/L (22-30); Chloride 103 mmol/L (98-107); Estimated CRCL calculation 123 ml/min; Estimated Glomerular Filt Rate > 60; Glucose 94 mg/dL (65-110); Potassium 3.9 mmol/L (3.4-5.0); Sodium 141 mmol/L (137-145)
--- NOTE | 2023-10-14 03:40 | ED.NECK ---
HPI - Neck Pain/Injury General Chief Complaint: Neck Pain/Injury <DO Alexandra Phoenix Last Filed: 10/14/23 07:00> Stated Complaint: neck swelling, infected lymph node <Dangelo Gallagher DO - Last Filed: 10/14/23 07:00> Time Seen by Provider: 10/14/23 03:31 <Dangelo Gallagher DO - Last Filed: 10/14/23 07:00> Source: patient <DO Alexandra Phoenix Last Filed: 10/14/23 07:00> Limitations: no limitations <Dangelo Gallagher DO - Last Filed: 10/14/23 07:00> History of Present Illness HPI Narrative: Patient is a 43-year-old male presents to the emergency department complaining of neck pain and swelling. Patient states partially 1 week ago on Tuesday started developing swelling and pain to his neck after he did some arroyo dying and has some sores and he went to [facility] and was started on Bactrim and steroids and then came here on the . Patient notes that the swelling was getting much improved with steroids from the ER and then it started to get worse again over the past few days is not getting more swollen and painful. Patient denies difficulty swallowing, sore throat, ear pain, hearing changes, chest pain, difficulty breathing, vomiting, diarrhea. Patient admits to being on clindamycin for almost a week now. Patient notes that he ran out of steroids and that seemed to make the swelling come back and get worse again. Patient admits to a slight fever at home yesterday 100.8. <DO Alexandra Phoenix Last Filed: 10/14/23 07:00> Related Data Allergies/Adverse Reactions: Allergies Allergy/AdvReac Type Severity Reaction Status Date / Time Penicillins AdvReac Unknown Rash Verified 10/09/23 04:38 <Dangelo Gallagher DO - Last Filed: 10/14/23 07:00> Review of Systems Review of Systems: A 10 system review of systems was completed on the patient and is negative except for what is stated in the HPI. Nursing and ancillary documentation was reviewed. <DO Alexandra Phoenix Last Filed: 10/14/23 07:00> [facility] Past Medical History Medical History: Medical History DVT (deep venous thrombosis) Hypertension <Dangelo Gallagher DO - Last Filed: 10/14/23 07:00> Surgical History Surgical History: Surgical History No pertinent past surgical history <Dangelo Gallagher DO - Last Filed: 10/14/23 07:00> Social History Social History: Social History Gender identity (if verbalized by the patient): Male <Dangelo Gallagher DO - Last Filed: 10/14/23 07:00> Comments At time of signature, I have reviewed and agree with nursing past medical, surgical, social and family history unless otherwise noted. Please see the nursing chart for further information. There is no relevant family history pertinent to the presenting complaint. <Dangelo Gallagher, - Last Filed: 10/14/23 07:00> Exam Narrative: CONST: No acute distress. Well nourished. HENMT: Head is normocephalic and atraumatic. Moist mucous membranes. No posterior oropharynx erythema. Uvula without deviation or edema. Soft palate without swelling. No sublingual brawny edema or tongue elevation. No periapical tooth swelling or pus expression, no tooth fracture, no gingival swelling, no active oral bleeding. No tonsil exudates. Submandibular edema present along the anterior neck without palpable fluctuance, no crepitus, no skin discoloration. EYES: No conjunctival icterus, injection, or pallor. PERRL. NECK: No meningeal signs. No stridor. RESP: Able to speak in full sentences. Normal respiratory effort. CTAB. CARDIO: Regular rate. Regular rhythm. 2+ DP and radial pulses bilaterally. GI: Nondistended. No tenderness to palpation. Soft. : No CVA tenderness to palpation. SKIN: No rashes or lesions noted on exposed skin
[2023-10-14] MEDS: MORPHINE SULFATE (*CRX) 4 MG/ML INJ IV PUSH (04:29)
--- NOTE | 2023-10-14 06:06 | PC.NURSE ---
Pt ambulated to the nurses station and states that his neck swelling is getting worse and he is starting to have trouble breathing. EDP made aware. Pt is 98% on RA at this time. All VSS.
[2023-10-14] MEDS: methylPREDNISolone SOD SUCC 125 MG VIAL IV PUSH (06:19)
[2023-10-14] MEDS: KETOROLAC 15 MG/ML VIAL (*BKC) IV PUSH (06:25)
[2023-10-14] MEDS: SODIUM CHLORIDE 0.9% IV 1,000 ML 999 ML IV CONT (06:25)
[2023-10-14] MEDS: CEFEPIME 2 GM/NS 50 ML 2 GM/50 ML BAG IVPB ×2 (06:49→19:23)
[2023-10-14 06:55] LABS: Lactic Acid Reflex 0.8 mmol/L (0.7-2.0)
[2023-10-14 06:56] LABS: CRP 1.8 mg/dL (<1.0)
[2023-10-14] MEDS: SODIUM CHLORIDE 0.9% IV 1,000 ML 150 ML IV CONT (07:48)
[2023-10-14] MEDS: metroNIDAZOLE 500 MG/ISO 100ML 500 MG/100 ML BAG 100 MG IVPB ×2 (07:49→16:30)
--- NOTE | 2023-10-14 10:10 | PC.NURSE ---
Pt reports to this nurse and Dr. Rodriguez he wants to discharge myself from here and drive to [facility]. Pt informed by ERP recommended TX is in place he would have to sign out AMA. Pt reports he wants to sign out and drive to [facility] all risks explained to pt and spouse and they voice positive understanding
--- NOTE | 2023-10-14 10:17 | PC.NURSE ---
pt now reports he does not want to leave AMA and states I will just have to wait in the waiting room there.
--- NOTE | 2023-10-14 13:51 | PC.NURSE ---
Pt moved to room 1 with hospital bed while awaiting transfer. Pt placed in gown, VSS, family updated. No further requests at this time. Pt resting comfortably.
[2023-10-14] MEDS: methylPREDNISolone SOD SUCC 125 MG VIAL 60 MG IV PUSH ×2 (14:23→22:47)
--- NOTE | 2023-10-14 20:39 | PC.NURSE ---
Pillow and blanket provided for patient visitor. Pt up and resting. Pt and family informed on waitlist status. No further requests at this time.
--- NOTE | 2023-10-14 22:49 | PC.NURSE ---
Report given to Vice President Of Software Engineering at [facility]
== END 2023-10-15 00:36 | disposition short-term general hospital (02) ==
PROVIDERS: Emergency Provider Student in an Organized Health Care Education/Training Program; PCP Emergency Medicine
DX: L02.01 Cutaneous abscess of face (principal); I10 Essential (primary) hypertension; Z86.718 Personal history of other venous thrombosis and embolism
CPT/HCPCS: 36415; 70491; 80053; 83605; 85025; 86140; 87040; 96361; 96365; 96366; 96367; 96375; 99285; J0692; J1836; J1885; J2270; J2919; J7030; Q9967

== ENCOUNTER 2024-06-30 07:39 | Emergency (ER) | payer OTHER, SELFPAY ==
--- NOTE | ~2024-06-30 | XR_ITS ---
XR knee RT 3V 06/30/2024 08:09 Indication: Right knee injury Procedure: 3 views right knee Comparison: No prior studies for comparison. Findings: No fracture, subluxation or dislocation. There is mild osteoarthritis. There are loose bodi es at the tibial tubercle, likely related to degenerative change or prior trauma. No significant join t effusion. Impression: 1: No acute fracture. Reviewed, dictated and finalized at location B. Impression: 1: No acute fracture.
--- OUTSIDE RECORDS SUMMARY | 2024-06-30 07:42 | XMS_ITS | Clinical Summary ---
Author Organization [facility] Jefferyjung gonzalez [facility] Address [address] [place] [address] Care Team Providers Care Hydrometeorologist Name Role Phone Unavailable Primary Care Provider Unavailabl e Allergies Active Allergy Reactions Criticality Noted Date Comments Penicillins Swelling High 10/07/2020 Medications clindamycin HCL (CLEOCIN) 300 mg Capsule Take 300 mg by mouth. Active Eliquis 5 mg tablet TAKE 1 TABLET BY MOUTH TWICE A DAY 60 Tablet 3 07/19/2022 Active Active Problems Problem Noted Date Diagnosed Date Acute deep vein thrombosis (DVT) of left peronea l vein 01/26/2022 Family History Medical History Relation Name Comments Diabetes Father Relation Name Status Comments Father Social History Tobacco Use Types Packs/Day Years Used Date Smoking Tobacco: Never Smokeless Tobacco: Never Tobacco Cessation:Counseling Given: Not Answered Alcohol Use Standard Drinks/Week Comments Not Currently 0 (1 standard drink = 0.6 oz pur e alcohol) Sex and Gender Information Value Date Recorded Sex Assigned at Not on file Legal Sex Male 3:28 PM CDT Gender Identity Not on file Sexual Orientation Not on file Last Filed Vital Signs Vital Sign Reading Time Taken Comments Blood Pressure 154/86 04/30/2022 12:51 PM SHANK CARRIER Pulse 57 04/30/2022 12:49 PM SHANK CARRIER Temperature 36.9 C (98.5 F) 04/30/2022 12:49 PM SHANK CARRIER Respiratory Rate 12 04/30/2022 12:4 9 PM SHANK CARRIER Oxygen Saturation 99% 04/30/2022 12: 49 PM SHANK CARRIER Inhaled Oxygen Concentration - - Weight 152.2 kg (335 lb 9.6 oz) 023 12:49 PM SHANK CARRIER Height 195.6 cm (6' 5 ) 04/30/2022 12:4 9 PM SHANK CARRIER Body Mass Index 39.8 04/30/2022 12:49 PM SHANK CARRIER Plan of Treatment Health Maintenance Due Date Last Done Comments DTAP/TDAP/TD VACCINES (1 - Tdap) 2000 HEPATITIS B VACCINES (1 of 3 - 19+ 3-dose series) 2000 INFLUENZA VACCINE (#1) 2023 HPV VACCINES Aged Out No longer eligi ble based on patient's age to complete this topic Insurance
--- OUTSIDE RECORDS SUMMARY | 2024-06-30 07:42 | XMS_ITS | Referral Summary ---
Author Organization [facility] Address [address] [place] [address] Care Team Providers Care Waterproof Material Folder Name Role Phone Ry Perry MD Primary Care Provider [phone] Allergies Active Allergy Reactions Criticality Noted Date Comments Penicillins Swelling Medium 10/07/2020 Medications apixaban (Eliquis DVT-PE Treat 30D Start) 5 mg (74 tabs) tablets,dose packIndications :deep venous thrombosis Take 2 tablets (10 mg total) by mouth 2 (two) times a day for 7 days, THEN 1 tablet (5 mg total) 2 (two) times a day thereafter. 74 tablet 12/28/2021 Active ketorolac (TORADOL) 10 mg tabletIndicatio ns:Severe Pain Take 1 tablet (10 mg total) by mouth 4 (four) times a day as needed for pain Take with food. 20 tablet 10/15/2023 Active Active Problems Problem Noted Date Diagnosed Date Abscess 10/15/2023 Acute deep vein thrombosis (DVT) of left peronea l vein 01/18/2022 Assessment & Plan (01/18/2022 8:52 AM CDT): Impression: Acute DVT left peroneal vein. No concern for PE. Patient is on anticoagulation and has upcoming appointment with Hematology. Plan: Continue anticoagulation. Further recommendations as per his PCP and pet care associate. Hyperlipidemia 01/28/2021 Hypertension 01/28/2021 Achilles tendinitis 12/11/2020 Plantar fasciitis of right foot 12/11/2020 Abnormal electrocardiogram 11/14/2020 Chest pain 11/14/2020 Localized edema 11/14/2020 SARS pneumonia 11/14/2020 Bunion 09/02/2020 Pain in toe 07/29/2020 Onychomycosis 07/28/2020 Asthma 07/24/2020 Social History Tobacco Use Types Packs/Day Years Used Date Smoking Tobacco: Former Cigarettes Smokeless Tobacco: Never Tobacco Cessation:Counseling Given: Not Answered Personal Safety Answer Date Recorded Have you ever been in or are you currently in a harmful physical or emotional relationship or is someone making you feel afraid or unsafe? 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 Gender Identity Not on file Sexual Orientation Not on file Last Filed Vital Signs Vital Sign Reading Time Taken Comments Blood Pressure 179/73 10/15/2023 7:00 AM CDT Pulse 58 10/15/2023 7:30 AM CDT Temperature 36.5 C (97.7 F) 10/15/2023 1:15 AM CDT Respiratory Rate 16 10/15/2023 4:45 AM CDT Oxygen Saturation 96% 10/15/2023 7:30 AM CDT Inhaled Oxygen Concentration - - Weight 142.9 kg (315 lb) 10/15/2023 1:15 AM CDT Height 195.6 cm (6' 5 ) 10/15/2023 1:15 AM CDT Body Mass Index 37.35 10/15/2023 1:15 AM CDT Plan of Treatment Not on file Insurance [facility] Care Teams Waterproof Material Folder Relationship Specialty Start Date End Date Ry Perry MD PCP - General Emergency Medicine 10/07/20
--- OUTSIDE RECORDS SUMMARY | 2024-06-30 07:42 | XMS_ITS | Clinical Summary ---
Author Organization [facility] Address [address] [place] [address] Care Team Providers Care Maintenance Worker Municipal Name Role Phone Ry Perry MD Primary Care Provider [phone] Allergies Active Allergy Reactions Criticality Noted Date [...] Further recommendations as per his PCP and roll capper. 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 Gender Identity Not on file Sexual Orientation Not on file Obstetrics History Last Filed Vital Signs Vital Sign Reading [...] 10/15/2023 1:15 AM CDT Plan of Treatment Health Maintenance Due Date Last Done Comments Depression Screening 1981 Hepatitis C Screening 1981 Prostate Cancer Screening-PSA 1981 DTaP/Tdap/Td Vaccine (1 - Tdap) 1992 Varicella Vaccines (1 of 2 - 13+ 2-dose series) 1994 Hepatitis B Screening 08/10/1999 Regular Well Visit/Exam 18-64 08/10/1999 Pneumococcal vaccine <65 (1 of 2 - PCV) 2000 Influenza Vaccine (#1) 2023 HPV Vaccines Aged Out No longer eligi ble based on patient's age to complete this topic Insurance Care Teams Maintenance Worker Municipal Relationship Specialty Start Date End Date Ry Perry MD PCP - General Emergency Medicine 10/07/20
--- OUTSIDE RECORDS SUMMARY | 2024-06-30 07:42 | XMS_ITS | CONTINUITY OF CARE DOCUMENT ---
Author Name oumar oseguera Address Unknown Organization [facility] Address [address] [place] [address] Phone [phone] Care Team Providers Care Supervisor Multifocal Lens Name Role Phone Junior FLOWERS, Santi Patel Unavailable KEVIN VALERIO MD Unavailable [phone] KEVIN VALERIO MD Unavailable [phone] PROBLEMS Condition Status Date Provider Notes Cardiology examination active Santi mcdonald MD Chest pain-type to be determined active Emmett Pacheco MD Edema - localized active Santi Morgan Abnormal electrocardiogram active Santi Pacheco MD SARS pneumonia active Santi Pacheco MD Hyperlipidemia active Santi Pacheco MD Hypertension active Santi Pacheco MD COVID-19 asymptomatic, no ex posure, testing results unknown or negative screening active Santi Pacheco MD Shortness of breath active Santi Pacheco MD Dizziness active Santi Pacheco MD Bradycardia - sinus active Santi Pacheco MD DVT active Santi Pacheco MD Sleep apnea active Santi Pacheco MD ENCOUNTERS Date Type Provider Location Encounter Diag nosis - In-person encounter Office Visit Santi Pacheco MD [facility] - In-person encounter Office Visit Santi Pacheco MD [facility] DizzinessBradycardia - sinusDVTSleep apnea - In-person encounter Office Visit Santi Pacheco MD [facility] Shortness of breath - In-person encounter Office Visit Santi Pacheco MD [place] [facility] - In-person encounter Office Visit Santi Pacheco MD [facility] COVID-19 asymptomatic, no exposure, testing results unknown or negative screening - In-person encounter Office Visit Santi Pacheco MD [facility] - In-person encounter Office Visit Santi Pacheco MD [facility] HyperlipidemiaHypertension - In-person encounter Office Visit Santi Pacheco MD [facility] Cardiology examinationChest pain-type to be determinedEdema - localizedAbnormal electrocardiogramSARS pneumonia VITAL SIGNS Date Observation Value Provider Body Mass Index (Ratio) 38.77 kg/m2 Na Pacheco MD blood pressure, diastolic 89 mm[Hg] Zehra nkLogshannon blood pressure, systolic 166 mm[Hg] Mary Jane Cuencaogshannon weight E&M 327 [lb_av] Caitlin Morris pulse rate 54 /min Caitlin Morris blood pressure, diastolic 89 mm[Hg] Leonora belem Morris blood pressure, systolic 166 mm[Hg] Dinah Morris oxygen saturation, oximetry 96 % Caitlin Morris blood pressure, cuff size large An belem Morris height E&M 77 [in_i] Caitlin Morris Body Mass Index (Ratio) 39.41 kg/m2 Na Pacheco MD blood pressure, diastolic 78 mm[Hg] [facility] wyatt Putnam blood pressure, systolic 146 mm[Hg] Sta cy [place] pulse rate 56 /min Mackenzie Jersey oxygen saturation, oximetry 96 % Mackenzie Jersey respiratory rate E&M 18 /min Mackenzie D dave weight E&M 332.4 [lb_av] Mackenzie Jersey height E&M 77 [in_i] Mackenziekelly Putnam blood pressure, diastolic 92 mm[Hg] Li nkLogic blood pressure, systolic 147 mm[Hg] Mary Jane kLogic Body Mass Index (Ratio) 39.84 kg/m2 Na Pacheco MD blood pressure, diastolic 92 mm[Hg] [facility] [place] blood pressure, systolic 147 mm[Hg] [place] mendoza [place] oxygen saturation, oximetry 97 % Mackenziekelly Putnam respiratory rate E&M 20 /min Mackenziekelly acosta pulse rate 60 /min Mackenzie Jersey weight E&M 336 [lb_av] Mackenzie Jersey height E&M 77 [in_i] Mackenziekelly Putnam Body Mass Index (Ratio) 39.13 kg/m2 Estrada Yue blood pressure, cuff size large Tn pilar Turcios blood pressure, diastolic 70 mm[Hg] Tn pilar Turcios blood pressure, systolic 119 mm[Hg] [facility] Turcios oxygen saturation, oximetry 98 % Evette Turcios respiratory rate E&M 16 /min Anna Turcios pulse rate 60 /min Evette morgan weight E&M 330 [lb_av] Evette morgan height E&M 77 [in_i] Evette morgan Body Mass Index (Ratio) 38.77 kg/m2 Na Pacheco MD blood pressure, diastolic 84 mm[Hg] Zehra nkLogic blood pressure, systolic 156 mm[Hg] Mary Jane kLogic blood pressure, diastolic 84 mm[Hg] Nevin Villafuerte blood pressure, systolic 156 mm[Hg] Fly Villafuerte respiratory rate E&M 18 /min Neftali Villafuerte pulse rate 57 /min Karena gill oxygen saturation, oximetry 98 % Karena Villafuerte weight E&M 327 [lb_av] Karena gill blood pressure, cuff size regular Nevin Villafuerte height E&M 77 [in_i] Karena gill blood pressure, diastolic 100 mm[Hg] Zehra whitmoreLogshannon blood pressure, systolic 160 mm[Hg] Mary Jane kLogic Body Mass Index (Ratio) 39.48 kg/m2 Na Pacheco MD blood pressure, diastolic 100 mm[Hg] Sa ra Hodgson blood pressure, systolic 160 mm[Hg] Kathy a Hodgson blood pressure, cuff size large Sa ra Hodgson weight E&M 333 [lb_av] Jeni Hodgson oxygen saturation, oximetry 97 % Jeni Hodgson respiratory rate E&M 19 /min Jeni Si ms pulse rate 81 /min Jeni Hodgson height E&M 77 [in_i] Jeni Hodgson Body Mass Index (Ratio) 39.15 kg/m2 Na Pacheco MD blood pressure, diastolic 70 mm[Hg] Zehra nkLogic blood pressure, systolic 126 mm[Hg] Mary Jane kLogic blood pressure, diastolic 70 mm[Hg] Logan Giles blood pressure, systolic 126 mm[Hg] Esther Giles oxygen saturation, oximetry 97 % Danny Giles respiratory rate E&M 16 /min Joleen Giles pulse rate 76 /min Danny humphreys weight E&M 330.2 [lb_av] Danny diaz height E&M 77 [in_i] Danny humphreys Body Mass Index (Ratio) 38.18 kg/m2 Na Pacheco MD blood pressure, diastolic 76 mm[Hg] Li nkLogshannon blood pressure, systolic 131 mm[Hg] Mary Jane Bangogshannon blood pressure, diastolic 76 mm[Hg] Rh ongideon Cooper blood pressure, systolic 131 mm[Hg] Rho tyrel Cooper oxygen saturation, oximetry 98 % Lilibeth Cooper pulse rate 60 /min Lilibeth Cooper respiratory rate E&M 18 /min Lilibeth Cooper blood pressure, resting No Fernandez Del Angel weight E&M 322 [lb_av] Lilibeth Cooper height E&M 77 [in_i] Lilibeth Cooper blood pressure, cuff size regular Rh ongideon Cooper ALLERGIES Allergy Name Onset Date Reaction Criticality Status PENICILLIN High Criticality active RESULTS Date Observation Value Provider Reference Range Interpretation Location 0 lipoprotein, beta, serum, point, quantitative, calculated 82 mg/dL [facility] 0-99 0 HDL cholesterol, serum 34 mg/dL [facility] >39 Low 0 triglyceride, serum, random 133 mg/dL [facility] 0-149 0 cholesterol, serum 140 mg/dL [facility] 651-147 1344/10/3 0 alanine aminotransferase (SGPT), serum 36 1/L [facility] 0-44 0 aspartate aminotransferase (SGOT), serum 40 1/L [facility] 0-40 0 alkaline phosphatase, serum 78 1/L [facility] 44-121 0 bilirubin, serum, total 0.5 mg/dL [facility] 0.0-1.2 0 albumin/globulin ratio, serum 1.9 [facility] 1.2-2.2 0 globulin, serum 2.4 [facility] 1.5-4.5 0 albumin, serum 4.5 g/dL [facility] 4.0-5.0 0 protein, total, serum 6.9 g/dL [facility] 6.0-8.5 0 calcium, serum 9.3 mg/dL [facility] 8.7-10.2 0 carbon dioxide, venous blood 23 mmol/L [facility] 20-29 0 chloride, serum 104 mmol/L [facility] 96-106 0 potassium, serum 4.4 mmol/L [facility] 3.5-5.2 0 sodium, serum 141 mmol/L [facility] 783-690 0815/10/3 0 urea nitrogen/creatinine ratio, serum 11 [facility] 9-20 0 eGFR if 87 mL/min/{1 .73_m2} [facility] >59 0 eGFR if not 75 mL/min/{1 .73_m2} [facility] >59 0 creatinine, serum 1.21 mg/dL [facility] 0.76-1.27 0 urea nitrogen, blood 13 mg/dL [facility] 6-20 0 blood glucose, random 86 mg/dL [facility] 65-99 7 B-type natriuretic peptide 6.5 pg/mL [facility] 0.0-100.0 7 free thyroxine index 1.2 [facility] 1.2-4.9 7 triiodothyronine resin uptake 23 % [facility] 24-39 Low 7 thyroxine, serum, total 5.0 ug/dL [facility] 4.5-12.0 7 thyroid stimulating hormone, serum 0.694 u[IU]/mL [facility] 0.450-4.500 lipoprotein, beta, serum, point, quantitative, calculated 87 mg/dL [facility] 0-99 HDL cholesterol, serum 37 mg/dL [facility] >39 Low triglyceride, serum, random 196 mg/dL [facility] 0-149 High cholesterol, serum 157 mg/dL [facility] 608-723 6682/08/0 7 alanine aminotransferase (SGPT), serum 110 1/L [facility] 0-44 High aspartate aminotransferase (SGOT), serum 50 1/L [facility] 0-40 High alkaline phosphatase, serum 85 1/L [facility] 48-121 bilirubin, serum, total 0.6 mg/dL [facility] 0.0-1.2 7 albumin/globulin ratio, serum 1.5 [facility] 1.2-2.2 7 globulin, serum 2.8 [facility] 1.5-4.5 7 albumin, serum 4.2 g/dL [facility] 4.0-5.0 7 protein, total, serum 7.0 g/dL [facility] 6.0-8.5 7 calcium, serum 9.3 mg/dL [facility] 8.7-10.2 7 carbon dioxide, venous blood 23 mmol/L [facility] 20-29 7 chloride, serum 105 mmol/L [facility] 96-106 7 potassium, serum 4.6 mmol/L [facility] 3.5-5.2 7 sodium, serum 141 mmol/L [facility] 276-378 5778/08/0 7 urea nitrogen/creatinine ratio, serum 12 [facility] 9-20 eGFR if 112 mL/min/{1 .73_m2} [facility] >59 7 eGFR if not 97 mL/min/{1 .73_m2} [facility] >59 7 creatinine, serum 0.98 mg/dL [facility] 0.76-1.27 7 urea nitrogen, blood 12 mg/dL [facility] 6-20 7 blood glucose, random 102 mg/dL [facility] 65-99 High HISTORY OF MEDICATION USE Medication Status Instructions Dates Provider Indications Com ments Eliquis 5 mg tablet active Amand a Ventimiglia [employer]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 diclofenac sodium 75 mg tablet,delayed release (DR/EC) active Lydia Ventimiglia [facility] hydrochlorothiazide 12.5 mg tablet active TAKE 1 TABLET BY MOUTH EVERY DAY [facility] lisinopril 10 mg tablet active TAKE 1 TABLET BY MOUTH EVERY DAY [facility] furosemide 20 mg tablet active TAKE 1 TABLET BY MOUTH EVERY DAY [facility] amlodipine 5 mg tablet active TAKE 1 TABLET BY MOUTH EVERY DAY Mackenzie Putnam hydrochlorothiazide 12.5 mg tablet completed Take 1 tablet by mouth once a day - Yanely Hairston lisinopril 10 mg tablet completed Take 1 tablet by mouth once a day - Yanely Rushi Norvasc 5 mg tablet completed TAKE 1 TABLE T BY MOUTH EVERY DAY - Santi Pacheco MD SOCIAL HISTORY Date Observation Value Provider drug use no Lydia Ventimig jonathan [facility] alcohol use no Lydia Ventimig jonathan [facility] Exercise counseling yes Caitlinsamantha casillas smoking, year quit 2021 Caitlin Tre sue cigarette use yes Caitlin Morris smoking status Former smoker Caitlin gonzalez social history reviewed E&M revi ewed - no changes required Santi Pacheco MD social history E&M S moking History: Marko españa is a former smoker. Santi Pacheco MD Exercise counseling yes Mackenzie Da vis smoking, year quit 2021 Mackenziekelly Calderon is cigarette use yes Mackenzie Putnam smoking status Former smoker Mackenzie Putnam social history reviewed E&M revi ewed - no changes required Santi Pacheco MD social history E&M S moking History: P patria is a former smoker. Santi Pacheco MD Exercise counseling yes Mackenzie Tran smoking, year quit 2021 Mackenziekelly Calderon is cigarette use yes Mackenzie Putnam smoking status Former smoker Mackenzie Putnam social history reviewed E&M revi ewed - no changes required Santi Pacheco MD social history E&M S moking History: Marko españa is a former smoker. Santi Pacheco MD smoking, year quit 2021 Evette Turcios cigarette use yes Evette Oliver nd smoking status Former smoker Santi johnson MD social history reviewed E&M revi ewed - no changes required Santi Pacheco MD Exercise counseling yes Lissethqueenie edmund Villafuerte social history reviewed E&M revi ewed - no changes required Santi Pacheco MD number of grandchildren Santi Pacheco MD social history E&M S moking History: Marko españa currently smokes every day. Santi Pacheco MD social history reviewed E&M revi ewed - no changes required Santi Pacheco MD cigarette use yes Danny diaz smoking status Current every da y smoker Danny Giles social history E&M S moking History: Marko españa currently smokes every day. Santi Pacheco MD social history reviewed E&M revi ewed - no changes required Santi Pacheco MD cigarette use yes Lilibeth Cooper smoking status Current every da y smoker Lilibeth Cooper FAMILY HISTORY Family Member Condition Father Family History of Di abetes: INSURANCE PROVIDERS Payer name Policy type / Coverage type [employer] [place] [employer] MEDICAID (2) Medicaid [id number] ADVANCE DIRECTIVES Name Date DISCUSSED - NO DECISION MADE TREATMENT PLAN Date Name Performer [id number],C,E KG abnormal with concern for LVH based on appearance and today's changes. Will plan for follow up echo and close monitoring of BP at home . H is updated medication list for this problem includes: Lisinopril 10 Mg Tablet (Lisinopril) ..... Take 1 tablet by mouth every day Amlodipine 5 Mg Tablet (Amlodipine) ..... Take 1 tablet by mouth every day [facility] [id number],C,remains on el iquis [facility] [id number],C, H is updated medication list for this problem includes: Lisinopril 10 Mg Tablet (Lisinopril) ..... Take 1 tablet by mouth every day Amlodipine 5 Mg Tablet (Amlodipine) ..... Take 1 tablet by mouth every day [facility] [id number],S, [facility] [id number],C,B P elevated at 166/89. patient reports well controlled at home. Have asked him to monitor and bring readings to next visit. H is updated medication list for this problem includes: Hydrochlorothiazide 12.5 Mg Tablet (Hydrochlorothiazide) ..... Take 1 tablet by mouth every day Lisinopril 10 Mg Tablet (Lisinopril) ..... Take 1 tablet by mouth every day Lasix 20 Mg Tablet (Furosemide) ..... Take 1 tablet by mouth every day Amlodipine 5 Mg Tablet (Amlodipine) ..... Take 1 tablet by mouth every day [facility] [id number],S,p patria continues to have episodes of SOB and waking with palpitations. He has known LUCIUS per previous sleep study, yet to get CPAP will arrange and have him return in 3 mos or sooner if needed. Lydia Stroud 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 [id number],C, H as prior mild LUCIUS, will repeat home sleep. Check PFTs, has some edema may benefit from diuretic. Will give him a dose of Lasix 20mg daily for 2 weeks and then have him let us know if his breathing has improved. July 28, 2022 n o prior history of PE. would however get a CT scan done. need contrast to eval PE and SOB. need to see Dr. ORLANDO for pulmonary Santi Pacheco MD [id number],S,H ome sleep study shows an AHI of 14.9 which is consistent with mild to moderate LUCIUS. Mean oxygen saturation of 9 4%, with the lowest being 86%. r eccomen titration study done or autpap Santi Pacheco MD [id number],C,p rior dvt left leg on eliquis. at [facility] Dr. Byrd. Santi Pacheco MD [id number],C,m abdullahibe related to bradycardia or afib. will check telemonitor for two weeks. Santi Pacheco MD [id number],C, h ad covid pneumonia, also had covid infection, unclear if he has cardiac sequale of covid May 21, 2022 M ay be component of long hauld COVID sx for SOB Santi Pacheco MD [id number],C,H as prior mild LUCIUS, will repeat home sleep. Check PFTs, has some edema may benefit from diuretic. Will give him a dose of Lasix 20mg daily for 2 weeks and then have him let us know if his breathing has improved. Santi Pacheco MD [id number],C,H e will check BPs at home. Elevated today, may need adjustment of Lisinopril and Amlodipine B P today: 147/92 P rior BP: 119/70 (11/18/2021) Labs Reviewed: C reat: 1.21 (02/07/2021) C hol: 140 (02/07/2021) HDL: 34 (02/07/2021) Santi Pacheco MD [id number],C, C ONCLUSIONS: 1 . Normal resting ECG. 2 . Normal Exercise Ramiro protocol ECG with no ischemic ST or T changes. There is no ECG evidence of myocardial ischemia w ith exercise, Patient had a hypertensive response to exercise. 3 . Left Ventricular Ejection Fraction is 59 %. TID: 0.8. 4 . Normal myocardial perfusion imaging with no evidence of ischemia or scar. 5. Hypertensive response to exertion. REVIEWD WITH HIM REGARDS THE ELEVATED BP ON EXERTION WILL ADD NORVASC 5MG DAILY FOR BP July 29, 2021 R ecurrent CP as described in HPI. The risks and benefits of the procedure, including but not limited the risk of heart attack, , stroke, bleeding, kidney failure, and loss of limb as well as the alternative of continued medical therapy, stress testing or bypass surgery were discussed with the patient and any present family members and the patient wishes to proceed with cardiac cath and stenting. The patient and family had opportunity to discuss this with us. Written material including informed consent was given out. November 18, 2021 H e had cath 09/16/21, Normal cors, low normal EF. Santi Pacheco MD [id number],C, c heck venous doppler reflux, check echo for CHF, check thyroid for hypothyroidism. no prior hx of DVT April 29, 2021 T SH WAS NL B OIL TREATER WAS 6.5 Santi Pacheco MD [id number],C, B P today: 119/70 P rior BP: 156/84 (07/29/2021) Labs Reviewed: C reat: 1.21 (02/07/2021) C hol: 140 (02/07/2021) HDL: 34 (02/07/2021) His updated medication list for this problem includes: Lisinopril 10 Mg Tablet (Lisinopril) ..... Take 1 tablet by mouth once a day Hydrochlorothiazide 12.5 Mg Tablet (Hydrochlorothiazide) ..... Take 1 tablet by mouth once a day Santi Pacheco MD [id number],S, l pid panel reviewed Santi Pacheco MD [id number],C,W as taking off norvasc by PCP on Lisinopril. Will increase to 10mg. Will add HCTZ 12.5mg T he following medications were removed from the medication list: Norvasc 5 Mg Tablet (Amlodipine) ..... Take 1 tablet by mouth every day His updated medication list for this problem includes: Lisinopril 5 Mg Tablet (Lisinopril) BP today: 156/84 P rior BP: 160/100 (04/29/2021) Labs Reviewed: C reat: 1.21 (02/07/2021) C hol: 140 (02/07/2021) HDL: 34 (02/07/2021) Santi Pacheco MD [id number],C, l pid panel reviewed Santi Pacheco MD [id number],C, C ONCLUSIONS: 1 . Normal resting ECG. 2 . Normal Exercise Ramiro protocol ECG with no ischemic ST or T changes. There is no ECG evidence of myocardial ischemia w ith exercise, Patient had a hypertensive response to exercise. 3 . Left Ventricular Ejection Fraction is 59 %. TID: 0.8. 4 . Normal myocardial perfusion imaging with no evidence of ischemia or scar. 5. Hypertensive response to exertion. REVIEWD WITH HIM REGARDS THE ELEVATED BP ON EXERTION WILL ADD NORVASC 5MG DAILY FOR BP July 29, 2021 R ecurrent CP as described in HPI. The risks and benefits of the procedure, including but not limited the risk of heart attack, , stroke, bleeding, kidney failure, and loss of limb as well as the alternative of continued medical therapy, stress testing or bypass surgery were discussed with the patient and any present family members and the patient wishes to proceed with cardiac cath and stenting. The patient and family had opportunity to discuss this with us. Written material including informed consent was given out. Santi Pacheco MD [id number],S,H e had stress test done, continues to describe midsternal CP. Schedule cath Santi Pacheco MD [id number],C, e cho C ONCLUSIONS: 1 . Normal left ventricular systolic function. Normal left ventricular size. There is borderline left ventricular hypertrophy. N ormal left ventricular diastolic function. E/E': 7.6. Left ventricular ejection fraction is measured at 60 %. 2 . Normal right ventricular size. Normal right ventricular systolic function. 3 . Normal appearing tricuspid valve leaflets. There is mild tricuspid regurgitation. IVC is normal in size with normal r espiratory response. Unable to adequately assess the RVSP. Santi Pacheco MD [id number],S, C ONCLUSIONS: 1 . Normal resting ECG. 2 . Normal Exercise Ramiro protocol ECG with no ischemic ST or T changes. There is no ECG evidence of myocardial ischemia w ith exercise, Patient had a hypertensive response to exercise. 3 . Left Ventricular Ejection Fraction is 59 %. TID: 0.8. 4 . Normal myocardial perfusion imaging with no evidence of ischemia or scar. 5. Hypertensive response to exertion. REVIEWD WITH HIM REGARDS THE ELEVATED BP ON EXERTION WILL ADD NORVASC 5MG DAILY FOR BP Santi Pacheco MD [id number],C, h ad covid pneumonia, also had covid infection, unclear if he has cardiac sequale of covid Santi Pacheco MD [id number],C, c heck venous doppler reflux, check echo for CHF, check thyroid for hypothyroidism. no prior hx of DVT April 29, 2021 T SH WAS NL B OIL TREATER WAS 6.5 Santi Pacheco MD [id number],S,lpid panel re viewed Santi Pacheco MD [id number],C, H is updated medication list for this problem includes: Norvasc 5 Mg Tablet (Amlodipine) ..... Take 1 tablet by mouth once a day BP today: 160/100 P rior BP: 126/70 (01/28/2021) Labs Reviewed: C reat: 1.21 (02/07/2021) C hol: 140 (02/07/2021) HDL: 34 (02/07/2021) Santi Pacheco MD [id number],S,C ONCLUSIONS: 1 . Normal resting ECG. 2 . Normal Exercise Ramiro protocol ECG with no ischemic ST or T changes. There is no ECG evidence of myocardial ischemia w ith exercise, Patient had a hypertensive response to exercise. 3 . Left Ventricular Ejection Fraction is 59 %. TID: 0.8. 4 . Normal myocardial perfusion imaging with no evidence of ischemia or scar. 5 . Hypertensive response to exertion. REVIEWD WITH HIM REGARDS THE ELEVATED BP ON EXERTION WILL ADD NORVASC 5MG DAILY FOR BP Santi Pacheco MD [id number],C,- C ONCLUSIONS: 1 . Normal left ventricular systolic function. Normal left ventricular size. There is borderline left ventricular hypertrophy. N ormal left ventricular diastolic function. E/E': 7.6. Left ventricular ejection fraction is measured at 60 %. 2 . Normal right ventricular size. Normal right ventricular systolic function. 3 . Normal appearing tricuspid valve leaflets. There is mild tricuspid regurgitation. IVC is normal in size with normal r espiratory response. Unable to adequately assess the RVSP. Santi Pacheco MD [id number],S,h ad covid pneumonia, also had covid infection, unclear if he has cardiac sequale of covid Santi Pacheco MD [id number],S,c heck nuc stress since he ahs abnl ekg, check echo and DVT study Santi Pacheco MD [id number],C,h ad episode of cp, went to [facility], was told he may have had a mild OR. had no work up dopne to his recollection. w ill obtain nuc exercise stress and check echo. he has abnl EKG Santi Pacheco MD [id number],C,c heck venous doppler reflux, check echo for CHF, check thyroid for hypothyroidism. no prior hx of DVT Santi Pacheco MD Cardiology:EKG abnor mal with concern for LVH based on appearance and today's changes. Will plan for follow up echo and close monitoring of BP at home . H is updated medication list for this problem includes: Lisinopril 10 Mg Tablet (Lisinopril) ..... Take 1 tablet by mouth every day Amlodipine 5 Mg Tablet (Amlodipine) ..... Take 1 tablet by mouth every day [facility] Cardiology:[facility]iquis [facility] Cardiology: H is updated medication list for this problem includes: Lisinopril 10 Mg Tablet (Lisinopril) ..... Take 1 tablet by mouth every day Amlodipine 5 Mg Tablet (Amlodipine) ..... Take 1 tablet by mouth every day [facility] Cardiology [facility] Cardiology:BP elevat ed at 166/89. patient reports well controlled at home. Have asked him to monitor and bring readings to next visit. H is updated medication list for this problem includes: Hydrochlorothiazide 12.5 Mg Tablet (Hydrochlorothiazide) ..... Take 1 tablet by mouth every day Lisinopril 10 Mg Tablet (Lisinopril) ..... Take 1 tablet by mouth every day Lasix 20 Mg Tablet (Furosemide) ..... Take 1 tablet by mouth every day Amlodipine 5 Mg Tablet (Amlodipine) ..... Take 1 tablet by mouth every day [facility] Cardiology:patient c ontinues to have episodes of SOB and waking with palpitations. He has known LUCIUS per previous sleep study, yet to get CPAP will arrange and have him return in 3 mos or sooner if needed. [facility] Cardiology: H as prior mild LUCIUS, will repeat home sleep. Check PFTs, has some edema may benefit from diuretic. Will give him a dose of Lasix 20mg daily for 2 weeks and then have him let us know if his breathing has improved. July 28, 2022 n o prior history of PE. would however get a CT scan done. need contrast to eval PE and SOB. need to see Dr. ORLANDO for pulmonary Santi Pacheco MD Cardiology:Home slee p study shows an AHI of 14.9 which is consistent with mild to moderate LUCIUS. Mean oxygen saturation of 9 4%, with the lowest being 86%. r eccomen titration study done or autpap Santi Pacheco MD Cardiology:prior dvt left leg on eliquis. at [facility] Dr. Byrd. Santi Pacheco MD Cardiology:maybe rel ated to bradycardia or afib. will check telemonitor for two weeks. Santi Pacheco MD Cardiology: h ad covid pneumonia, also had covid infection, unclear if he has cardiac sequale of covid May 21, 2022 M ay be component of long haMaxMilhas COVID sx for SOB Santi Pacheco MD Cardiology:Has prior mild LUCIUS, will repeat home sleep. Check PFTs, has some edema may benefit from diuretic. Will give him a dose of Lasix 20mg daily for 2 weeks and then have him let us know if his breathing has improved. Santi Pacheco MD Cardiology:He will c heck BPs at home. Elevated today, may need adjustment of Lisinopril and Amlodipine B P today: 147/92 P rior BP: 119/70 (11/18/2021) Labs Reviewed: C reat: 1.21 (02/07/2021) C hol: 140 (02/07/2021) HDL: 34 (02/07/2021) Santi Pacheco MD Cardiology: C ONCLUSIONS: 1 . Normal resting ECG. 2 . Normal Exercise Ramiro protocol ECG with no ischemic ST or T changes. There is no ECG evidence of myocardial ischemia w ith exercise, Patient had a hypertensive response to exercise. 3 . Left Ventricular Ejection Fraction is 59 %. TID: 0.8. 4 . Normal myocardial perfusion imaging with no evidence of ischemia or scar. 5 . Hypertensive response to exertion. REVIEWD WITH HIM REGARDS THE ELEVATED BP ON EXERTION WILL ADD NORVASC 5MG DAILY FOR BP July 29, 2021 R ecurrent CP as described in HPI. T he risks and benefits of the procedure, including but not limited the risk of heart attack, , stroke, bleeding, kidney failure, and loss of limb as well as the alternative of continued medical therapy, stress testing or bypass surgery were discussed with the patient and any present family members and the patient wishes to proceed with cardiac cath and stenting. The patient and family had opportunity to discuss this with us. Written material including informed consent was given out. November 18, 2021 H e had cath 09/16/21, Normal cors, low normal EF. Santi Pacheco MD Cardiology: c leeanne venous doppler reflux, check echo for CHF, check thyroid for hypothyroidism. no prior hx of DVT April 29, 2021 T SH WAS NL B OIL TREATER WAS 6.5 Santi Pacheco MD Cardiology: B P today: 119/70 P rior BP: 156/84 (07/29/2021) Labs Reviewed: C reat: 1.21 (02/07/2021) C hol: 140 (02/07/2021) HDL: 34 (02/07/2021) His updated medication list for this problem includes: Lisinopril 10 Mg Tablet (Lisinopril) ..... Take 1 tablet by mouth once a day Hydrochlorothiazide 12.5 Mg Tablet (Hydrochlorothiazide) ..... Take 1 tablet by mouth once a day Santi Pacheco MD Cardiology: l pid panel reviewed Santi Pacheco MD Cardiology:Was marcio ramesh off norvasc by PCP on Lisinopril. Will increase to 10mg. Will add HCTZ 12.5mg T he following medications were removed from the medication list: Norvasc 5 Mg Tablet (Amlodipine) ..... Take 1 tablet by mouth every day His updated medication list for this problem includes: Lisinopril 5 Mg Tablet (Lisinopril) BP today: 156/84 P rior BP: 160/100 (04/29/2021) Labs Reviewed: C reat: 1.21 (02/07/2021) C hol: 140 (02/07/2021) HDL: 34 (02/07/2021) Santi Pacheco MD Cardiology: l pid panel reviewed Santi Pacheco MD Cardiology: C ONCLUSIONS: 1 . Normal resting ECG. 2 . Normal Exercise Ramiro protocol ECG with no ischemic ST or T changes. There is no ECG evidence of myocardial ischemia w ith exercise, Patient had a hypertensive response to exercise. 3 . Left Ventricular Ejection Fraction is 59 %. TID: 0.8. 4 . Normal myocardial perfusion imaging with no evidence of ischemia or scar. 5 . Hypertensive response to exertion. REVIEWD WITH HIM REGARDS THE ELEVATED BP ON EXERTION WILL ADD NORVASC 5MG DAILY FOR BP July 29, 2021 R ecurrent CP as described in HPI. T he risks and benefits of the procedure, including but not limited the risk of heart attack, , stroke, bleeding, kidney failure, and loss of limb as well as the alternative of continued medical therapy, stress testing or bypass surgery were discussed with the patient and any present family members and the patient wishes to proceed with cardiac cath and stenting. The patient and family had opportunity to discuss this with us. Written material including informed consent was given out. Santi Pacheco MD Cardiology:He had st ress test done, continues to describe midsternal CP. Schedule cath Santi Pacheco MD Cardiology: clifford Lipscomb ONCLUSIONS: 1 . Normal left ventricular systolic function. Normal left ventricular size. There is borderline left ventricular hypertrophy. N ormal left ventricular diastolic function. E/E': 7.6. Left ventricular ejection fraction is measured at 60 %. 2 . Normal right ventricular size. Normal right ventricular systolic function. 3 . Normal appearing tricuspid valve leaflets. There is mild tricuspid regurgitation. IVC is normal in size with normal r espiratory response. Unable to adequately assess the RVSP. Santi Pacheco MD Cardiology: C ONCLUSIONS: 1 . Normal resting ECG. 2 . Normal Exercise Ramiro protocol ECG with no ischemic ST or T changes. There is no ECG evidence of myocardial ischemia w ith exercise, Patient had a hypertensive response to exercise. 3 . Left Ventricular Ejection Fraction is 59 %. TID: 0.8. 4 . Normal myocardial perfusion imaging with no evidence of ischemia or scar. 5 . Hypertensive response to exertion. REVIEWD WITH HIM REGARDS THE ELEVATED BP ON EXERTION WILL ADD NORVASC 5MG DAILY FOR BP Santi Pacheco MD Cardiology: h ad covid pneumonia, also had covid infection, unclear if he has cardiac sequale of covid Santi Pacheco MD Cardiology: c leeanne venous doppler reflux, check echo for CHF, check thyroid for hypothyroidism. no prior hx of DVT April 29, 2021 T SH WAS NL B OIL TREATER WAS 6.5 Santi Pacheco MD Cardiology:lpid panel reviewed S piotr Pacheco MD Cardiology: H is updated medication list for this problem includes: Norvasc 5 Mg Tablet (Amlodipine) ..... Take 1 tablet by mouth once a day BP today: 160/100 P rior BP: 126/70 (01/28/2021) Labs Reviewed: C reat: 1.21 (02/07/2021) C hol: 140 (02/07/2021) HDL: 34 (02/07/2021) Santi Pacheco MD Cardiology:CONCLUSIO NS: 1 . Normal resting ECG. 2 . Normal Exercise Ramiro protocol ECG with no ischemic ST or T changes. There is no ECG evidence of myocardial ischemia w ith exercise, Patient had a hypertensive response to exercise. 3 . Left Ventricular Ejection Fraction is 59 %. TID: 0.8. 4 . Normal myocardial perfusion imaging with no evidence of ischemia or scar. 5 . Hypertensive response to exertion. REVIEWD WITH HIM REGARDS THE ELEVATED BP ON EXERTION WILL ADD NORVASC 5MG DAILY FOR BP Santi Pacheco MD Cardiology:- C ONCLUSIONS: 1 . Normal left ventricular systolic function. Normal left ventricular size. There is borderline left ventricular hypertrophy. N ormal left ventricular diastolic function. E/E': 7.6. Left ventricular ejection fraction is measured at 60 %. 2 . Normal right ventricular size. Normal right ventricular systolic function. 3 . Normal appearing tricuspid valve leaflets. There is mild tricuspid regurgitation. IVC is normal in size with normal r espiratory response. Unable to adequately assess the RVSP. Santi Pacheco MD Cardiology:had covid pneumonia, also had covid infection, unclear if he has cardiac sequale of covid Santi Pacheco MD Cardiology:check nuc stress since he ahs abnl ekg, check echo and DVT study Santi Pacheco MD Cardiology:had episo de of cp, went to [facility], was told he may have had a mild OR. had no work up dopne to his recollection. w ill obtain nuc exercise stress and check echo. he has abnl EKG Santi Pacheco MD Cardiology:check lizbet ous doppler reflux, check echo for CHF, check thyroid for hypothyroidism. no prior hx of DVT Santi Pacheco MD Date Name Venous Doppler Bilat eral LE MAGNESIUM TSH, free T4, total T3 COMPREHENSIVE METABO LIC PANEL, W/EGFR TSH, free T4, total T3 MAGNESIUM COMPREHENSIVE METABO LIC PANEL, W/EGFR Monitor - Telemetry (Mobile Cardiac) CT Chest with contra st Sleep Study Titratio n 6 minute walk test Ambulatory Oximetry DLCO - 65608 FRC - 77036 FVC - 65853 Sleep Study Home COVID19 nasal swab ( LC) PROTHROMBIN TIME WIT H INR LIPID PANEL CBC (INCLUDES DIFF/P LT) BASIC METABOLIC PANE L W/EGFR Coronary Stent - GC Cardiac Cath - Left - GC RPM (remote patient monitoring) LIPID PANEL COMPREHENSIVE METABO LIC PANEL, W/EGFR LIPID PANEL COMPREHENSIVE METABO LIC PANEL, W/EGFR TSH, free T4, total T3 LIPID PANEL B TYPE NATRIURETIC P EPTIDE (BNP) COMPREHENSIVE METABO LIC PANEL, W/EGFR Venous Doppler Bilat eral LE - Reflux Sleep Study Home Stress Exercise Card iolite Complete Echo HISTORY OF PROCEDURES Procedure Date Procedure Name Provider Procedure Notes S tatus EKG Santi Pacheco MD compl eted EKG Santi Pacheco MD compl eted 6 minute walk test Santi Pacheco MD completed Spirometry Santi Pacheco MD compl eted FVC / MVV - 61327 Santi Pcaheco MD completed FRC - 83864 Santi Pacheco MD comp leted SpO2 w/o 6min walk/titration Santi Pacheco MD completed SVC - 20639 Santi Pacheco MD comp leted DLCO - 08130 Santi Pacheco MD com pleted EKG Santi Pacheco MD compl eted EKG Santi Pacheco MD compl eted EKG Santi Pacheco MD compl eted EKG Santi Pacheco MD compl eted EKG Santi Pacheco MD compl eted EKG Santi Pacheco MD compl eted
[2024-06-30 07:43] VITALS: BP 148/88; PULSE 60; RESP 16; TEMP 36.4; O2SAT 99
--- OUTSIDE RECORDS SUMMARY | 2024-06-30 08:10 | XMS_ITS | CONTINUITY OF CARE DOCUMENT ---
Author Name oumar oseguera Address Unknown Organization [facility] Address [address] [place] [address] Phone [phone] Care Team Providers Care Night Order Selector Name Role Phone Junior FLOWERS, Santi Patel Unavailable KEVIN VALERIO MD Unavailable [phone] KEVIN VALERIO MD Unavailable [phone] PROBLEMS Condition Status Date Provider Notes Cardiology examination active Santi mcdonald MD Chest pain-type to be determined active Emmett Pacheco MD Edema - localized active Satni Morgan Abnormal electrocardiogram active Santi Pacheco MD [...] In-person encounter Office Visit Santi Pacheco MD [facility] - In-person encounter Office Visit Santi Pacheco MD [facility] DizzinessBradycardia - sinusDVTSleep apnea - In-person encounter Office Visit Santi Pacheco MD [facility] Shortness of breath - In-person encounter Office Visit Santi Pacheco MD [facility] - In-person encounter Office Visit Santi Pacheco MD [facility] COVID-19 asymptomatic, no exposure, testing results unknown or negative screening - In-person encounter Office Visit Santi Pacheco MD [facility] - In-person encounter Office Visit Santi Pacheco MD [facility] HyperlipidemiaHypertension - In-person encounter Office Visit Santi Pacheco MD [facility] Cardiology examinationChest pain-type to be determinedEdema [...] Estrada Yue blood pressure, cuff size large Dc pilar Turcios blood pressure, diastolic 70 mm[Hg] Dc pilar Turcios blood pressure, systolic 119 mm[Hg] [facility] oxygen saturation, oximetry 98 % Evette [...] 0-149 0 cholesterol, serum 140 mg/dL [employer] [phone]/10/3 0 alanine aminotransferase (SGPT), serum 36 1/L [...] 3.5-5.2 0 sodium, serum 141 mmol/L [employer] [phone]/10/3 0 urea nitrogen/creatinine ratio, serum 11 [employer] [...] 0-149 High cholesterol, serum 157 mg/dL [employer] [phone]/08/0 7 alanine aminotransferase (SGPT), serum 110 1/L [...] 3.5-5.2 7 sodium, serum 141 mmol/L [employer] [phone]/08/0 7 urea nitrogen/creatinine ratio, serum 12 [employer] [...] 5 mg tablet active Amand a Ventimiglia SPECIAL 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 hydrochlorothiazide 12.5 mg tablet active TAKE 1 TABLET BY MOUTH EVERY DAY [facility] lisinopril 10 mg tablet active TAKE 1 TABLET BY MOUTH EVERY DAY [facility] furosemide 20 mg tablet active TAKE 1 TABLET BY MOUTH EVERY DAY [facility] amlodipine 5 mg tablet active TAKE 1 [...] Provider drug use no Lydia Ventimig jonathan [facility] alcohol use no Lydia Ventimig jonathan [facility] Exercise counseling yes Caitlinsamantha casillas smoking, year [...] Policy type / Coverage type Tiburcio red green party [employer] MEDICAID (2) Medicaid [id number] ADVANCE DIRECTIVES Name Date DISCUSSED - NO DECISION MADE TREATMENT PLAN Date Name Performer [id number],C,E KG abnormal with concern for LVH based on appearance and today's changes. Will plan for follow up echo and close monitoring of BP at home . H is updated medication list for this problem includes: Lisinopril 10 Mg Tablet (Lisinopril) ..... Take 1 tablet by mouth every day Amlodipine 5 Mg Tablet (Amlodipine) ..... Take 1 tablet by mouth every day [facility] [id number],C,remains on el iquis [facility] [id number],C, H is updated medication list for this problem includes: Lisinopril 10 Mg Tablet (Lisinopril) ..... Take 1 tablet by mouth every day Amlodipine 5 Mg Tablet (Amlodipine) ..... Take 1 tablet by mouth every day [facility] [id number],S, [facility] [id number],C,B P elevated at 166/89. patient reports well [...] Take 1 tablet by mouth every day [facility] [id number],S,p patria continues to have episodes of SOB and waking with palpitations. He has known LUCIUS per previous sleep study, yet to get CPAP will arrange and have him return in 3 mos or sooner if needed. Lydia Stroud [employer] MAKEUP ARTIST [id number],C, H as prior mild LUCIUS, will repeat [...] Dr. ORLANDO for pulmonary Santi Pacheco MD [id number],S,H ome sleep study shows an AHI of 14.9 which is consistent with mild to moderate LUCIUS. Mean oxygen saturation of 9 4%, with the lowest being 86%. r eccomen titration study done or autpap Santi Pacheco MD [id number],C,p rior dvt left leg on eliquis. at [facility] Dr. Byrd. Santi Pacheco MD [id number],C,m abdullahibe related to bradycardia or afib. will check telemonitor for two weeks. Santi Pacheco MD [id number],C, h ad covid pneumonia, also had covid infection, unclear if he has cardiac sequale of covid May 21, 2022 M ay be component of long hauld COVID sx for SOB Santi Pacheco MD [id number],C,H as prior mild LUCIUS, will repeat home sleep. Check PFTs, has some edema may benefit from diuretic. Will give him a dose of Lasix 20mg daily for 2 weeks and then have him let us know if his breathing has improved. Santi Pacheco MD [id number],C,H e will check BPs at home. Elevated today, may need adjustment of Lisinopril and Amlodipine B P today: 147/92 P rior BP: 119/70 (11/18/2021) Labs Reviewed: C reat: 1.21 (02/07/2021) C hol: 140 (02/07/2021) HDL: 34 (02/07/2021) Santi Pacheco MD [id number],C, C ONCLUSIONS: 1 . Normal resting ECG. [...] cors, low normal EF. Santi Pacheco MD [id number],C, c heck venous doppler reflux, check echo for CHF, check thyroid for hypothyroidism. no prior hx of DVT April 29, 2021 T SH WAS NL B COIN TELLER WAS 6.5 Santi Pacheco MD [id number],C, B P today: 119/70 P rior BP: 156/84 (07/29/2021) Labs Reviewed: C reat: 1.21 (02/07/2021) C hol: 140 (02/07/2021) HDL: 34 (02/07/2021) His updated medication list for this problem includes: Lisinopril 10 Mg Tablet (Lisinopril) ..... Take 1 tablet by mouth once a day Hydrochlorothiazide 12.5 Mg Tablet (Hydrochlorothiazide) ..... Take 1 tablet by mouth once a day Santi Pacheco MD [id number],S, l pid panel reviewed Santi Pacheco MD [id number],C,W as taking off norvasc by PCP on [...] (02/07/2021) HDL: 34 (02/07/2021) Santi Pacheco MD [id number],C, l pid panel reviewed Santi Pacheco MD [id number],C, C ONCLUSIONS: 1 . Normal resting ECG. [...] consent was given out. Santi Pacheco MD [id number],S,H e had stress test done, continues to describe midsternal CP. Schedule cath Santi Pacheco MD [id number],C, e cho C ONCLUSIONS: 1 . Normal [...] adequately assess the RVSP. Santi Pacheco MD [id number],S, C ONCLUSIONS: 1 . Normal resting ECG. [...] 5MG DAILY FOR BP Santi Pacheco MD [id number],C, h ad covid pneumonia, also had covid infection, unclear if he has cardiac sequale of covid Santi Pacheco MD [id number],C, c heck venous doppler reflux, check echo for CHF, check thyroid for hypothyroidism. no prior hx of DVT April 29, 2021 T SH WAS NL B COIN TELLER WAS 6.5 Santi Pacheco MD [id number],S,lpid panel re viewed Santi Pacheco MD [id number],C, H is updated medication list for this problem includes: Norvasc 5 Mg Tablet (Amlodipine) ..... Take 1 tablet by mouth once a day BP today: 160/100 P rior BP: 126/70 (01/28/2021) Labs Reviewed: C reat: 1.21 (02/07/2021) C hol: 140 (02/07/2021) HDL: 34 (02/07/2021) Santi Pacheco MD [id number],S,C ONCLUSIONS: 1 . Normal resting ECG. 2 [...] 5MG DAILY FOR BP Santi Pacheco MD [id number],C,- C ONCLUSIONS: 1 . Normal left ventricular [...] adequately assess the RVSP. Santi Pacheco MD [id number],S,h ad covid pneumonia, also had covid infection, unclear if he has cardiac sequale of covid Santi Pacheco MD [id number],S,c heck nuc stress since he ahs abnl ekg, check echo and DVT study Santi Pacheco MD [id number],C,h ad episode of cp, went to [facility], was told he may have had a mild MA. had no work up dopne to his recollection. w ill obtain nuc exercise stress and check echo. he has abnl EKG Santi Pacheco MD [id number],C,c heck venous doppler reflux, check echo for [...] Take 1 tablet by mouth every day [facility] Cardiology:rem[facility] eliquis [facility] Cardiology: H is updated medication list for this problem includes: Lisinopril 10 Mg Tablet (Lisinopril) ..... Take 1 tablet by mouth every day Amlodipine 5 Mg Tablet (Amlodipine) ..... Take 1 tablet by mouth every day [facility] Cardiology [facility] Cardiology:BP elevat ed at 166/89. patient reports [...] Take 1 tablet by mouth every day [facility] Cardiology:patient c ontinues to have episodes of SOB and waking with palpitations. He has known LUCIUS per previous sleep study, yet to get CPAP will arrange and have him return in 3 mos or sooner if needed. [facility] Cardiology: H as prior mild LUCIUS, will [...] Cardiology:prior dvt left leg on eliquis. at [facility] Dr. Byrd. Santi Pacheco MD Cardiology:maybe rel ated to bradycardia or afib. will check telemonitor for two weeks. Santi Pacheco MD Cardiology: h ad covid pneumonia, also had covid infection, unclear if he has cardiac sequale of covid May 21, 2022 M ay be component of long [employer] COVID sx for SOB Santi Pacheco MD [...] 29, 2021 T SH WAS NL B COIN TELLER WAS 6.5 Santi Pacheco MD Cardiology: B [...] 29, 2021 T SH WAS NL B COIN TELLER WAS 6.5 Santi Pacheco MD Cardiology:lpid panel [...] told he may have had a mild MA. had no work up dopne to his [...] minute walk test Ambulatory Oximetry DLCO - 35258 FRC - 20220 FVC - 74549 Sleep Study Home COVID19 nasal swab ( [...] MD compl eted FVC / MVV - 91422 Santi Pacheco MD completed FRC - 23684 Santi Pacheco MD comp leted SpO2 w/o 6min walk/titration Santi Pacheco MD completed SVC - 10436 Santi Pacheco MD comp leted DLCO - 43083 Santi Pacheco MD com pleted EKG Santi Pacheco MD compl eted EKG Santi Pacheco MD compl eted EKG Santi Pacheco MD compl eted EKG Santi Pacheco MD compl eted EKG Santi Pacheco MD compl eted EKG Santi Pacheco MD compl eted
--- OUTSIDE RECORDS SUMMARY | 2024-06-30 08:10 | XMS_ITS | Clinical Summary ---
Author Organization [facility] Address [address] [place] [address] Care Team Providers Care Dye Range Operator Name Role Phone Ry Perry MD Primary Care Provider [phone] Allergies Active Allergy Reactions Criticality Noted Date [...] Further recommendations as per his PCP and coin wrapping machine operator. 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
--- OUTSIDE RECORDS SUMMARY | 2024-06-30 08:10 | XMS_ITS | Referral Summary ---
Author Organization [facility] Address [address] [place] [address] Care Team Providers Care Forestry Tree Pruner Name Role Phone Ry Perry MD Primary Care Provider [phone] Allergies Active Allergy Reactions Criticality Noted Date [...] Further recommendations as per his PCP and drivers license examiner. 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
--- OUTSIDE RECORDS SUMMARY | 2024-06-30 08:10 | XMS_ITS | Clinical Summary ---
Author Organization [facility] Jefferyjung gonzalez [facility] Address [address] [place] [address] Care Team Providers Care Electrostatic Painter Name Role Phone Unavailable Primary Care Provider [...] Comments Blood Pressure 154/86 04/30/2022 12:51 PM NUTRITIONAL HEALTH COACH Pulse 57 04/30/2022 12:49 PM NUTRITIONAL HEALTH COACH Temperature 36.9 C (98.5 F) 04/30/2022 12:49 PM NUTRITIONAL HEALTH COACH Respiratory Rate 12 04/30/2022 12:4 9 PM NUTRITIONAL HEALTH COACH Oxygen Saturation 99% 04/30/2022 12: 49 PM NUTRITIONAL HEALTH COACH Inhaled Oxygen Concentration - - Weight 152.2 kg (335 lb 9.6 oz) 023 12:49 PM NUTRITIONAL HEALTH COACH Height 195.6 cm (6' 5 ) 04/30/2022 12:4 9 PM NUTRITIONAL HEALTH COACH Body Mass Index 39.8 04/30/2022 12:49 PM NUTRITIONAL HEALTH COACH Plan of Treatment Health Maintenance Due Date Last Done Comments DTAP/TDAP/TD VACCINES (1 - Tdap) 2000 HEPATITIS B VACCINES (1 of 3 - 19+ 3-dose series) 2000 INFLUENZA VACCINE (#1) 2023 HPV VACCINES Aged Out No longer eligi ble based on patient's age to complete this topic Insurance
--- NOTE | 2024-06-30 08:11 | ED.GENADULT ---
HPI - General Adult General Chief complaint: Extremity Injury, Lower Stated complaint: twisted my knee x2 days ago, R. knee Time Seen by Provider: 06/30/24 07:46 History of Present Illness HPI narrative: 43-year-old male present to the emergency department for evaluation for a right knee injury. Patient states he tripped over his son's foot and while attempting to prevent a fall did end up twisting his right knee result in a popping sound and immediate pain. Patient states he has had increased knee swelling and pain since the injury. Patient describes right lateral and posterior knee pain. Related Data Allergies Allergy/AdvReac Type Severity Reaction Status Date / Time Penicillins AdvReac Unknown Rash Verified 06/30/24 07:46 Review of Systems Review of Systems: All systems reviewed & are unremarkable except as noted in HPI and below PMFSH Past Medical History Medical History DVT (deep venous thrombosis) Hypertension Surgical History Surgical History No pertinent past surgical history Social History Social History Gender identity (if verbalized by the patient): Male Exam Narrative: APPEARANCE: Well appearing, no pain, no distress, well-nourished. HEAD: normocephalic, atraumatic. EYES: PERRLA/EOMI, conjunctivae clear. NOSE: Normal no drainage EARS:TMS clear with good light reflex. THROAT: Pharynx clear, no exudate. NECK: Supple. No adenopathy, no masses. RESPIRATORY: Airway patent, respirations nonlabored. Clear to auscultation bilaterally, no rales, rhonchi, wheezing. CARDIOVASCULAR: Regular rate and rhythm without murmurs rubs or gallops. ABDOMINAL: Soft, nontender, nondistended, normal bowel sounds MUSCULOSKELETAL: Right lateral knee tenderness to palpation, no proximal tib-fib tenderness, no ankle tenderness. No distal femur tenderness NEURO: Alert. Cranial nerves II through XII intact. Good gait. Good coordination SKIN: Warm, dry. Normal Color Course Vital Signs Vital signs: Vital Signs Temperature 97.6 F 06/30/24 07:43 Pulse Rate 60 06/30/24 07:43 Respiratory Rate 16 03/22/25 07:43 Blood Pressure 148/88 H 06/30/24 07:43 Pulse Oximetry 99 06/30/24 07:43 Oxygen Delivery Room Air 06/30/24 07:43 Temperature 97.6 F 06/30/24 07:43 Pulse Rate 60 06/30/24 07:43 Respiratory Rate 16 06/30/24 07:43 Blood Pressure 148/88 H 06/30/24 07:43 Pulse Oximetry 99 06/30/24 07:43 Oxygen Delivery Room Air 06/30/24 07:43 Medical Decision Making MDM Narrative Medical decision making narrative: 43-year-old male present to the emergency department for evaluation for worsening right knee pain after an acute injury. Patient does report pain with range of motion and pain with weight-bearing. X-rays were negative for acute fracture dislocation. Patient was provided a knee immobilizer and crutches for limited weight-bearing. Patient was encouraged to have close follow-up with his primary care physician. Patient was advised to take Tylenol ibuprofen for pain control and to have close follow-up with primary care physician for potential outpatient MRI as needed. Differential Diagnosis Differential Diagnosis: Knee fracture, knee contusion, knee effusion internal derangement of right knee Vital Signs Vital Signs: Vital Signs Temperature 97.6 F 06/30/24 07:43 Pulse Rate 60 06/30/24 07:43 Respiratory Rate 16 06/30/24 07:43 Blood Pressure 148/88 H 06/30/24 07:43 Pulse Oximetry 99 06/30/24 07:43 Oxygen Delivery Room Air 06/30/24 07:43 Temperature 97.6 F 06/30/24 07:43 Pulse Rate 60 06/30/24 07:43 Respiratory Rate 16 06/30/24 07:43 Blood Pressure 148/88 H 06/30/24 07:43 Pulse Oximetry 99 06/30/24 07:43 Oxygen Delivery Room Air 06/30/24 07:43 Imaging Data Radiologist's impression: Impressions Knee X-Ray 06/30/24 08:14 Impression: 1: No acute fracture. Discharge Plan Discharge Clinical Impression: Acute internal derangement of knee Patient Disposition: Home, Self-Care Condition: Stable Instructions: Antibiotic Form, Crutch Instructions (ED), Knee Immobilizer (ED) Additional Instructions: Your x-ray was negative for acute fracture or dislocation. Tylenol and ibuprofen for pain control. Knee immobilizer for increased knee stability. Crutches for limited weight-bearing. Have close follow-up with your primary care physician and you may need an outpatient MRI if her symptoms do not improve. Patient Language: [place] Prescriptions: No Action clindamycin HCl 300 mg capsule 300 mg PO Q6H 7 Days Qty: 28 0RF Follow-up/Referrals: Ry Perry MD [Primary Care Provider] - Stand Alone Forms: Work/School Release IP
== END 2024-06-30 08:37 | disposition home or self-care (01) ==
PROVIDERS: Emergency Provider Emergency Medicine; PCP Emergency Medicine
DX: M23.91 Unspecified internal derangement of right knee (principal); S89.91XA Unspecified injury of right lower leg, initial encounter; I10 Essential (primary) hypertension; Z86.718 Personal history of other venous thrombosis and embolism; X50.9XXA Other and unspecified overexertion or strenuous movements or postures, initial encounter
CPT/HCPCS: 73562; 99283

== ENCOUNTER → 2025-01-14 08:19 | Outpatient (CLI) | payer OTHER, SELFPAY ==
--- NOTE | ~2025-01-14 | XR_ITS ---
EXAMINATION: XR knee RT 3V, 01/14/2025 8:26 CDT HISTORY: RT knee pain 6 months after twisting/fall injury COMPARISON: No comparisons available. Findings: No acute fracture or malalignment. Moderate tricompartmental degenerative changes, small effusion Soft tissues unremarkable. Impression: No acute fracture or malalignment. Reviewed, dictated and finalized at location P. Impression: No acute fracture or malalignment.
== END ==
LOC: EXPCRAD 08:22
PROVIDERS: PCP Emergency Medicine; Visit Provider Emergency Medicine
DX: M17.11 Unilateral primary osteoarthritis, right knee (principal); M25.461 Effusion, right knee
CPT/HCPCS: 73562